=== PATIENT | male | born 1945 | race Caucasian/White ===

== ENCOUNTER → 2018-06-14 | Outpatient (CLI) | payer MEDICARE, OTHER ==
[~2018-06-14] MED LIST: AMLO5TAB10 PO; AZAT50TA PO; CYAN100031 PO; CYAN1TAB21 PO; ERGO50007 PO; FINA5TAB4 PO; FOLI1TAB16 PO; FURO40TA4 PO; INSU100I13 SQ; INSU100I17 SQ; LINA5TAB PO; LISI10TA2 PO; PANT40TA77 PO; POLY15DR20 OP; POTA99TA10 PO; PRED-220 PO; SULF-143 PO; TAMS0.4C97 PO; VIT1TABL57 PO
--- NOTE | 2018-06-14 17:06 | KCIC ---
COMPLETE ABDOMINAL ULTRASOUND Clinical History: Gross hematuria. Comparison: CT abdomen without contrast February 23, 2013. Technique: Sonographic examination of the abdomen was performed and multiple grayscale and color Doppler static images were obtained. Findings: Most of the liver is visualized and is increased in echogenicity. The liver measures 18.2 cm. Ultrasound is not sensitive for detecting solid liver lesions. Portal flow is hepatopetal. The common bile duct is normal in caliber, measuring 4 mm in diameter. The gallbladder wall is normal. Per report, sonographic Price sign is negative. There is no pericholecystic fluid. There are several hyper echogenicities along the wall of the gallbladder. There is no posterior acoustic shadowing. Considerations include tumefactive sludge or nonmobile gallstones. Pancreas is not well visualized due to overlying bowel gas. The right kidney is normal in echotexture and measures 11 cm. The left kidney is normal in echotexture and measures 10.7 cm. There is a 9 mm calculus in the left kidney. Corticomedullary differentiation is preserved. There is no hydronephrosis. The spleen is not enlarged, measuring 10.8 cm. There are calcified granulomas in the spleen. IVC is unremarkable. The distal abdominal aorta caliber is normal. Proximal and mid abdominal aorta are obscured due to overlying bowel gas. IMPRESSION: 1. Increased echogenicity of the liver. Common etiology is fatty infiltration. Liver size upper limits of normal. 2. Tiny nonmobile gallstones or tumefactive sludge. Gallbladder is otherwise normal. 3. Nonobstructing left renal calculus. Electronically signed by: Eloy Gerber MD (06/14/2018 5:02 PM) [id number]
== END | disposition home or self-care (01) ==
LOC: KCIC US 09:28
PROVIDERS: ATTEND Urology
DX: N20.0 Calculus of kidney (principal); K76.0 Fatty (change of) liver, not elsewhere classified
CPT/HCPCS: 76700

== ENCOUNTER → 2018-09-21 | Outpatient (CLI) | payer MEDICARE, OTHER ==
[~2018-09-21] MED LIST changes: +PANT40TA5 PO; -PANT40TA77 PO
[2018-09-21 09:13] LABS: ALBUMIN 2.7 g/dL (3.4-5.0); CALCIUM 9.1 mg/dL (8.5-10.1); CREATININE 2.5 mg/dL (0.7-1.3); GFR 25.6; PHOSPHORUS 4.2 mg/dL (2.6-4.7); POTASSIUM 4.2 mmol/L (3.5-5.1)
[2018-09-21 09:30] LABS: BILIRUBIN,URINE NEGATIVE (NEG); CLARITY,URINE CLEAR; COLOR,URINE YELLOW; NITRITE,URINE NEGATIVE (NEG); PROTEIN,URINE 100 mg/dL (NEG-TRACE); UROBILINOGEN,URINE 0.2 mg/dL (0.2 mg/dL)
[2018-09-21 09:42] LABS: BACTERIA,URINE MODERATE /HPF (0-FEW); WBC,URINE 20-40 /HPF (0-4)
[2018-09-24 17:12] LABS: C ANCA 1:40 titer (Neg:<1:20); P ANCA <1:20 titer (Neg:<1:20)
== END | disposition home or self-care (01) ==
LOC: LAB 07:41
PROVIDERS: ATTEND Internal Medicine Nephrology
DX: N18.2 Chronic kidney disease, stage 2 (mild) (principal); R80.9 Proteinuria, unspecified
CPT/HCPCS: 36415; 80069; 81001; 86021; 87086

== ENCOUNTER → 2018-09-27 | Outpatient (CLI) | payer MEDICARE, OTHER ==
[2018-09-27 08:14] LABS: ALBUMIN 2.7 g/dL (3.4-5.0); CALCIUM 8.9 mg/dL (8.5-10.1); CREATININE 2.3 mg/dL (0.7-1.3); GFR 28.1; PHOSPHORUS 2.9 mg/dL (2.6-4.7); POTASSIUM 3.8 mmol/L (3.5-5.1)
== END | disposition home or self-care (01) ==
LOC: LAB 07:26
PROVIDERS: ATTEND Internal Medicine Nephrology
DX: N18.2 Chronic kidney disease, stage 2 (mild) (principal); R80.9 Proteinuria, unspecified
CPT/HCPCS: 36415; 80069

== ENCOUNTER 2018-09-28 09:04 | Inpatient (IN) | payer OTHER, MEDICARE ==
[~2018-09-28] VITALS: Ht 167.6 cm; Wt 70.9 kg
[~2018-09-28 09:04] MED LIST changes: -FINA5TAB4 PO; -INSU100I13 SQ; -TAMS0.4C97 PO
[2018-09-28 10:20] LABS: BASO % 1 % (0-3); EOS # 0.1 x10^3/uL (0.0-0.7); EOS % 1 % (0-3); HEMATOCRIT 27.1 % (39.0-53.0); HEMOGLOBIN 8.9 g/dL (13.0-17.5); LYMPH # 0.6 x10^3/uL (1.0-4.8); LYMPH % 10 % (24-48); MEAN CORPUSCULAR HEMOGLOBIN 28 pg (25-35); MEAN CORPUSCULAR HGB CONC 33 g/dL (31-37); MEAN CORPUSCULAR VOLUME 86 fL (79-100); MONO # 0.4 x10^3/uL (0.0-1.1); MONO % 7 % (0-9); NEUT # 5.2 x10^3uL (1.8-7.7); NEUT % 82 % (31-73); PLATELET COUNT 307 x10^3/uL (140-400); RED BLOOD COUNT 3.16 x10^6/uL (4.30-5.70); RED CELL DISTRIBUTION WIDTH 16.3 % (11.5-14.5); WHITE BLOOD COUNT 6.4 x10^3/uL (4.0-11.0)
[2018-09-28 10:41] LABS: CREATININE 2.4 mg/dL (0.7-1.3); GFR 26.7; POTASSIUM 3.6 mmol/L (3.5-5.1)
[2018-09-28 11:35] LABS: ALBUMIN 2.8 g/dL (3.4-5.0); ALBUMIN/GLOBULIN RATIO 0.7 (1.0-1.7); MAGNESIUM 1.7 mg/dL (1.8-2.4); TOTAL BILIRUBIN 0.2 mg/dL (0.2-1.0); TOTAL PROTEIN 6.8 g/dL (6.4-8.2)
--- NOTE | 2018-09-28 11:35 | RAD ---
RENAL COMPLETE BILATERAL History: Renal failure Comparison: None. Findings: Multiple sonographic images of the kidneys and retroperitoneal structures are submitted. Right kidney measured 11.2 x 5.1 x 5.4 cm. Left kidney measures 11.4 x 4.3 x 5.8 cm. There is mild left hydronephrosis. There is no right hydronephrosis. There is a slightly lobulated contour of the bilateral kidneys. There is focus of hyperechogenicity of the inferior left kidney about 1.2 cm which may be a calculus as there is associated shadowing. There is prostatomegaly, estimated volume of 145 cm 3. Urinary bladder morphology is within normal limits, ureteral jets seen bilaterally in the urinary bladder lumen. Impression: 1. There is mild left hydronephrosis. There is likely inferior left renal calculus. Ureteral jets are seen bilaterally in the urinary bladder lumen. 2. There is prostatomegaly. Electronically signed by: Erik Cr MD (09/28/2018 11:07 AM) [id number]
[2018-09-28 12:07] LABS: COLOR,URINE YELLOW
[2018-09-28 12:08] LABS: BACTERIA,URINE MODERATE /HPF (0-FEW); BILIRUBIN,URINE NEGATIVE (NEG); CLARITY,URINE CLEAR; NITRITE,URINE NEGATIVE (NEG); PROTEIN,URINE 100 mg/dL (NEG-TRACE); RBC,URINE >40 /HPF (0-2); UROBILINOGEN,URINE 0.2 mg/dL (0.2 mg/dL); WBC,URINE >40 /HPF (0-4)
--- NOTE | 2018-09-28 12:49 | PHYS DOC ---
Past Medical History Past Medical History: Diabetes-Type II, GERD, Hypertension, Renal Failure, Other Additional Past Medical Histor: Wagners disease, dialysis, enlarged prostate Past Surgical History: No Surgical History Additional Information: chews tobacco daily Alcohol Use: Heavy Additional Information: reports drinking 4 cans of beer daily Drug Use: None Adult General Chief Complaint Chief Complaint: ABNORMAL LABS HPI HPI Patient is a 73 year old was sent here from his nephrology clinic due to abnormal kidney function. She denies any chest pain, no abdominal pain, no nausea vomiting. Patient denies any trouble breathing. Patient said he had been having swelling in his lower extremity for several weeks, he had been getting up in the middle night to urinate LEAST 4 TIMES PER NIGHT. HE FELT LIKE HE WAS NOT ABLE TO EMPTY HIS BLADDER COMPLETELY. HE HAS HISTORY OF PROSTRATE ENLARGEMENT. Review of Systems Review of Systems Constitutional: Denies fever or chills [] Eyes: Denies change in visual acuity, redness, or eye pain [] HENT: Denies nasal congestion or sore throat [] Respiratory: Denies cough or shortness of breath [] Cardiovascular: No additional information not addressed in HPI [] GI: Denies abdominal pain, nausea, vomiting, bloody stools or diarrhea [] : Denies dysuria or hematuria [] Musculoskeletal: Denies back pain or joint pain [] Integument: Denies rash or skin lesions [] Neurologic: Denies headache, focal weakness or sensory changes [] Endocrine: Denies polyuria or polydipsia [] All other systems were reviewed and found to be within normal limits, except as documented in this note. Current Medications Current Medications Current Medications Medications (Trade) Dose Ordered Sig/Maikel Start Time Stop Time Status Last Admin Dose Admin Sodium Chloride 1,000 ml @ 75 mls/hr [id number] 09/28/18 12:57 09/29/18 12:56 Allergies Allergies Allergies Coded Allergies Type Severity Reaction Last Updated Verified venom-honey bee Allergy Severe Anaphylaxis 06/14/13 Yes Physical Exam Physical Exam Constitutional: Well developed, well nourished, no acute distress, non-toxic appearance. [] HENT: Normocephalic, atraumatic, bilateral external ears normal, oropharynx moist, no oral exudates, nose normal. [] Eyes: PERRLA, EOMI, conjunctiva normal, no discharge. [] Neck: Normal range of motion, no tenderness, supple, no stridor. [] Cardiovascular:Heart rate regular rhythm, no murmur [] Lungs & Thorax: Bilateral breath sounds clear to auscultation [] Abdomen: Bowel sounds normal, soft, no tenderness, no masses, no pulsatile masses. [] Skin: Warm, dry, no erythema, no rash. [] Back: No tenderness, no CVA tenderness. [] Extremities: No tenderness, no cyanosis, no clubbing, ROM intact, TWO PLUS BILATERAL LEGS PITTING EDEMA. Neurologic: Alert and oriented X 3, normal motor function, normal sensory function, no focal deficits noted. [] Psychologic: Affect normal, judgement normal, mood normal. [] Current Patient Data Vital Signs Vital Signs Date Time Temp Pulse Resp B/P (MAP) Pulse Ox O2 Delivery O2 Flow Rate FiO2 09/28/18 12:52 58 167/74 (105) 100 Room Air 09/28/18 12:22 16 09/28/18 09:30 97.9 97.9 Lab Values Laboratory Tests Test 09/28/18 09:30 09/28/18 10:00 Urine Collection Type Unknown Urine Color Yellow Urine Clarity Clear Urine pH 6.0 Urine Specific [place] 1.010 Urine Protein 100 mg/dL (NEG-TRACE) Urine Glucose (UA) Negative mg/dL (NEG) Urine Ketones (Stick) Negative mg/dL (NEG) Urine Blood Large (NEG) Urine Nitrite Negative (NEG) Urine Bilirubin Negative (NEG) Urine Urobilinogen Dipstick 0.2 mg/dL (0.2 mg/dL) Urine Leukocyte Esterase Moderate (NEG) Urine RBC >40 /HPF (0-2) Urine WBC >40 /HPF (0-4) Urine Bacteria Moderate /HPF (0-FEW) White Blood Count 6.4 x10^3/uL (4.0-11.0) Red Blood Count 3.16 x10^6/uL (4.30-5.70) L Hemoglobin 8.9 g/dL (13.0-17.5) L Hematocrit 27.1 % (39.0-53.0) L Mean Corpuscular Volume 86 fL (79-100) Mean Corpuscular Hemoglobin 28 pg (25-35) Mean Corpuscular Hemoglobin Concent 33 g/dL (31-37) Red Cell Distribution Width 16.3 % (11.5-14.5) H Platelet Count 307 x10^3/uL (140-400) Neutrophils (%) (Auto) 82 % (31-73) H Lymphocytes (%) (Auto) 10 % (24-48) L Monocytes (%) (Auto) 7 % (0-9) Eosinophils (%) (Auto) 1 % (0-3) Basophils (%) (Auto) 1 % (0-3) Neutrophils # (Auto) 5.2 x10^3uL (1.8-7.7) Lymphocytes # (Auto) 0.6 x10^3/uL (1.0-4.8) L Monocytes # (Auto) 0.4 x10^3/uL (0.0-1.1) Eosinophils # (Auto) 0.1 x10^3/uL (0.0-0.7) Basophils # (Auto) 0.0 x10^3/uL (0.0-0.2) Sodium Level 141 mmol/L (136-145) Potassium Level 3.6 mmol/L (3.5-5.1) Chloride Level 104 mmol/L (98-107) Carbon Dioxide Level 27 mmol/L (21-32) Anion Gap 10 (6-14) Blood Urea Nitrogen 29 mg/dL (8-26) H Creatinine 2.4 mg/dL (0.7-1.3) H Estimated GFR (Cockcroft-Gault) 26.7 BUN/Creatinine Ratio 12 (6-20) Glucose Level 126 mg/dL (70-99) H Calcium Level 9.0 mg/dL (8.5-10.1) Magnesium Level 1.7 mg/dL (1.8-2.4) L Total Bilirubin 0.2 mg/dL (0.2-1.0) Aspartate Amino Transferase (AST) 17 U/L (15-37) Alanine Aminotransferase (ALT) 13 U/L (16-63) L Alkaline Phosphatase 92 U/L (46-116) Total Protein 6.8 g/dL (6.4-8.2) Albumin 2.8 g/dL (3.4-5.0) L Albumin/Globulin Ratio 0.7 (1.0-1.7) L Laboratory Tests 09/28/18 10:00 Laboratory Tests 09/28/18 10:00 EKG EKG [] Radiology/Procedures Radiology/Procedures [][facility] [address] [place] [address] IMAGING REPORT Signed PATIENT: ISATU MAZARIEGOS ACCOUNT: [id number] : 1945 LOCATION: ER AGE: 73 SEX: M EXAM STATUS: REG ER ORD. PHYSICIAN: JOSH GOMES DO REASON: renal failure, urinary retention PROCEDURE: RENAL COMPLETE BILATERAL RENAL COMPLETE BILATERAL History: Renal failure Comparison: None. Findings: Multiple sonographic images of the kidneys and retroperitoneal structures are submitted. Right kidney measured 11.2 x 5.1 x 5.4 cm. Left kidney measures 11.4 x 4.3 x 5.8 cm. There is mild left hydronephrosis. There is no right hydronephrosis. There is a slightly lobulated contour of the bilateral kidneys. There is focus of hyperechogenicity of the inferior left kidney about 1.2 cm which may be a calculus as there is associated shadowing. There is prostatomegaly, estimated volume of 145 cm 3. Urinary bladder morphology is within normal limits, ureteral jets seen bilaterally in the urinary bladder lumen. Impression: 1. There is mild left hydronephrosis. There is likely inferior left renal calculus. Ureteral jets are seen bilaterally in the urinary bladder lumen. 2. There is prostatomegaly. Electronically signed by: Celeste Longoria MD (09/28/2018 11:07 AM) [facility] DICTATED and SIGNED BY: CELESTE LONGORIA MD DATE: 09/28/18 1107 Course & Med Decision Making Course & Med Decision Making Pertinent Labs and Imaging studies reviewed. (See chart for details) [] Dragon Disclaimer Dragon Disclaimer This electronic medical record was generated, in whole or in part, using a voice recognition dictation system. Departure Departure Impression: Primary Impression: Acute renal failure Disposition: 09 ADMITTED INPATIENT Admitting Physician: Bart Poe Condition: STABLE Referrals: BART POE MD (PCP) JOSH GOMES DO Sep 28, 2018 12:49
[2018-09-28] MEDS ORDERED: IV NORMAL SALINE 1000ML BAG 1,000 ML IV SCH (12:57)
[2018-09-28] MEDS ORDERED: ONDANSETRON PF 4 MG/2 ML VIAL. IV PRN (13:00)
[2018-09-28 15:00] VITALS: BP 161/82
[2018-09-28] MEDS ORDERED: ACETAMINOPHEN 325 MG TABLET. PO PRN (18:15)
[2018-09-28] MEDS ORDERED: POLYVINYL ALCOHOL 1.4% OPHTH SOLUTION 15ML BOTTLE. OU PRN (18:15)
--- NOTE | 2018-09-28 18:20 | PDOC ---
Provider Note Provider Note Patient seen. History and Physical dictated. See dictation#[id number] BART MURPHY MD Sep 28, 2018 18:20
--- NOTE | 2018-09-28 18:46 | HP ---
ADMIT DATE: 09/28/2018 HISTORY OF PRESENT ILLNESS: This 73-year-old male went to Dr. Hernandez's office today for Nephrology evaluation and he was noted to have creatinine of 2.4. Previously, the patient's creatinine has been around 1. 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 Currently, he is getting azathioprine and for many years, his renal function has been quite stable. However, the patient has been complaining of nocturia four times at night and feels that he is not able to empty the bladder completely and last several weeks, he also has had swelling of the legs. Because of that, the patient was sent to the Emergency Room. In the Emergency Room, the patient's creatinine was 2.4. Urinalysis showed nitrite negative, but moderate leukocyte esterase, 40 rbc's, 40 wbc's and moderate bacteria. The patient does not have any dysuria, fever or chills. BUN is 29, creatinine 2.4, glucose 126, magnesium 1.7, albumin 2.8. Sodium 141, potassium 3.6. WBC count 6.4, hemoglobin 8.9. Renal sonogram showed mild left hydronephrosis and possible inferior left renal calculus. Because of the acute renal failure, the patient has been admitted for further evaluation and management. REVIEW OF SYSTEMS: At present time, the patient denies any hematuria, dysuria, cold, cough, congestion, chest pains, abdominal pain, nausea, vomiting, diarrhea, back pain, dysuria, fever, chills, heartburn, or any other issues. He does admit to swelling of the legs for the last several weeks. PAST MEDICAL HISTORY: The patient has a history of Rosa's granulomatosis and at one time required hemodialysis for end-stage renal disease, has degenerative joint disease involving multiple joints, anemia. 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 PAST SURGICAL HISTORY: The patient has had peritoneal dialysis access catheter as well as kidney biopsy. ALLERGIES: The patient has had bee venom protein. THE PATIENT IS ALLERGIC TO ALL BEES. FAMILY HISTORY: Father had coronary artery disease at age 50. It was a premature coronary artery disease. Mother had Alzheimer's disease. SOCIAL HISTORY: No history of smoking, alcoholism or drug abuse. He does have a history of drinking beer every day. He does not smoke, but chews tobacco. PHYSICAL EXAMINATION: GENERAL: The patient is an elderly male who is alert, oriented x 3 and not in any acute distress. VITAL SIGNS: Temperature 97.9, pulse 69 per minute, respirations 16 per minute, blood pressure initially was 166/81 mmHg. Currently, it is 170/73, pulse 59 per minute, respirations 17 per minute. The patient is alert, oriented and not in any acute distress. EYES: Pupils reacting to light. Conjunctivae pink. Sclerae muddy. HENT: Unremarkable. NECK: Supple. JVP normal. No thyromegaly. Trachea midline. LUNGS: Clear. CARDIOVASCULAR SYSTEM: S1, S2 regular. ABDOMEN: Soft, nontender, no guarding, no rigidity, no CVA or suprapubic tenderness. Bowel sounds present. EXTREMITIES: Trace to 1+ edema present. No calf tenderness. CENTRAL NERVOUS SYSTEM: Alert and oriented. No acute changes noted. LABORATORY FINDINGS: As noted earlier. IMPRESSION: 1. Acute renal failure. 2. Hypertension, not controlled. 3. Diabetes mellitus. 4. Rosa's granulomatosis, on azathioprine. 5. History of elevated prostate specific antigen and prostatic hypertrophy. 6. Possible left renal calculus. 7. The patient may have obstructive uropathy. PLAN: I will start him on IV fluids to see if we can help him in his renal function for the acute renal failure. We will consult the urologist for Urology evaluation and management and Dr. Hernandez for Nephrology evaluation and management. The patient has been kept n.p.o. from [facility] for kidney biopsy. For details, please review the orders. Condition and treatment discussed with the patient and his . Magnesium level is slightly low at 1.7, so I will start him on magnesium supplements. Recheck labs in a.m. For details, please review the orders and monitor blood pressure and blood sugars. BART MURPHY MD DR: GALEN/seth JOB#: [id number] / [id number]
[2018-09-28 19:00] VITALS: BP 144/59
[2018-09-28] MEDS: IV NORMAL SALINE 1000ML BAG 1,000 ML IV SCH (19:37)
[2018-09-28] MEDS ORDERED: TAMSULOSIN 0.4 MG CAP.ER.24H. PO SCH (21:00)
[2018-09-28] MEDS ORDERED: azaTHIOprine 50 MG TABLET PO SCH (21:00)
[2018-09-28] MEDS: MAGNESIUM OXIDE 400 MG TABLET PO SCH (21:41)
[2018-09-28 22:40] VITALS: BP 119/48
[2018-09-29] VITALS (13 sets, daily range): BP systolic 103–147; BP diastolic 51–81
[2018-09-29] MEDS: IV NORMAL SALINE 1000ML BAG 1,000 ML IV SCH ×3 (05:09→20:48)
[2018-09-29 06:19] LABS: BASO % 1 % (0-3); EOS # 0.1 x10^3/uL (0.0-0.7); EOS % 3 % (0-3); HEMATOCRIT 24.8 % (39.0-53.0); HEMOGLOBIN 8.2 g/dL (13.0-17.5); LYMPH # 0.6 x10^3/uL (1.0-4.8); LYMPH % 13 % (24-48); MEAN CORPUSCULAR HEMOGLOBIN 29 pg (25-35); MEAN CORPUSCULAR HGB CONC 33 g/dL (31-37); MEAN CORPUSCULAR VOLUME 86 fL (79-100); MONO # 0.4 x10^3/uL (0.0-1.1); MONO % 8 % (0-9); NEUT # 3.4 x10^3uL (1.8-7.7); NEUT % 76 % (31-73); PLATELET COUNT 262 x10^3/uL (140-400); RED BLOOD COUNT 2.89 x10^6/uL (4.30-5.70); RED CELL DISTRIBUTION WIDTH 16.5 % (11.5-14.5); WHITE BLOOD COUNT 4.5 x10^3/uL (4.0-11.0)
[2018-09-29 06:40] LABS: ALBUMIN 2.3 g/dL (3.4-5.0); ALBUMIN/GLOBULIN RATIO 0.6 (1.0-1.7); CALCIUM 8.4 mg/dL (8.5-10.1); CREATININE 2.2 mg/dL (0.7-1.3); GFR 29.6; MAGNESIUM 1.8 mg/dL (1.8-2.4); PHOSPHORUS 4.1 mg/dL (2.6-4.7); POTASSIUM 3.8 mmol/L (3.5-5.1); TOTAL BILIRUBIN 0.3 mg/dL (0.2-1.0)
[2018-09-29] MEDS ORDERED: PANTOPRAZOLE 40 MG TABLET.DR. PO SCH (07:00)
[2018-09-29] MEDS ORDERED: CYANOCOBALAMIN PO SCH (09:00)
[2018-09-29] MEDS: MAGNESIUM OXIDE 400 MG TABLET PO SCH ×2 (09:00→20:46)
[2018-09-29] MEDS ORDERED: [UNRECOGNIZED DRUG - OTHER] PO SCH (09:00)
[2018-09-29] MEDS ORDERED: LINAGLIPTIN 5 MG TABLET PO SCH (09:00)
[2018-09-29] MEDS ORDERED: FOLIC ACID 1 MG TABLET. PO SCH (09:00)
[2018-09-29] MEDS ORDERED: PYRIDOXINE PO SCH (09:00)
--- NOTE | 2018-09-29 09:02 | PDOC2 ---
LORENA REDDING APRN 09/29/18 0902: UROLOGY CONSULT Date of Consult Date of Consult DATE: 09/29/18 TIME: 09:00 Reason for Consult Reason for Consult: Incomplete emptying. Identification/Chief Complaint Chief Complaint Incomplete emptying, question whether he has had a prostate biopsy or not Source Source: Chart review, Patient History of Present Illness Reason for Visit: This very pleasant 73 year old male hospitalized for acute renal failure is well known to us. He is a patient of Dr. Minor's and was seen at [facility] clinic for elevated PSA for which he had a prostate biopsy on the 27 of July at our [facility] clinic. He did see Dr. Minor again in the office in July and was told that his biopsy results were negative, but the doctor wanted to see him again in six months. He is mostly feelign well today, but does admit to some LUTS, the most bothersome of which is nocturia of 3-4 times at night and some sensation of incomplete emptying, although this is not as bothersome as the nocturia. He denies dysuria or hematuria, flank or abd pain and would actually like to go home today if possible. He has been taking Finasteride daily and one Flomax daily as an outpatient. Dr. Duarte would like to perform a Renal biopsy on him and is wanting confirmation that prostate biopsy results were negative. Past Medical History Cardiovascular: HTN Pulmonary: No pertinent hx GI: Constipation, GERD Heme/Onc: Other Musculoskeletal: low back pain, Osteoarthritis Rheumatologic: Other Infectious disease: No pertinent hx Renal/: Other Endocrine: Diabetes Past Surgical History Past Surgical History: Other (Prostate biopsy) Family History Family History: Other Social History ALCOHOL: social Drugs: None Lives: with Family Current Medications Current Medications Current Medications Acetaminophen (Tylenol) 650 mg PRN Q6HRS PRN PO MILD PAIN / TEMP; Start 09/28/18 at 18:15 Artificial Tears (Artificial Tears) 1 drop PRN QID PRN OU DRY EYE; Start 09/28/18 at 18:15 Azathioprine (Imuran) 50 mg BID PO ; Start 09/28/18 at 21:00; Status UNV Azathioprine (Imuran) 50 mg DAILY PO ; Start 09/29/18 at 09:00 Cyanocobalamin (Vitamin B-12) 1,000 mcg DAILY PO ; Start 09/29/18 at 09:00 Finasteride (Proscar) 5 mg DAILY PO ; Start 09/29/18 at 09:00 Folic Acid (Folic Acid) 1 mg DAILY PO ; Start 09/29/18 at 09:00 Folic Acid (Folic Acid) 1 mg DAILY PO ; Start 09/29/18 at 09:00; Status UNV Linagliptin (Tradjenta) 5 mg DAILY PO ; Start 09/29/18 at 09:00; Status UNV Magnesium Oxide (Magnesium Oxide) 400 mg BID PO Last administered on 09/28/18at 21:41; Start 09/28/18 at 21:00 Nifedipine (Procardia Xl) 30 mg HS PO Last administered on 09/28/18at 21:41; Start 09/28/18 at 21:00 Non-Formulary Medication (Cyanocobalamin/ Fa/Pyridoxine (B Complex-Folic Acid Tablet)) 1 each DAILY PO ; Start 09/29/18 at 09:00; Status UNV Ondansetron HCl (Zofran) 4 mg PRN Q8HRS PRN IV NAUSEA/VOMITING; Start 09/28/18 at 13:00; Stop 09/29/18 at 12:59 Pantoprazole Sodium (Protonix) 40 mg DAILY07 PO ; Start 09/29/18 at 07:00; Status UNV Pantoprazole Sodium (Protonix) 40 mg DAILYAC PO ; Start 09/29/18 at 07:30 Sodium Chloride 1,000 ml @ 75 mls/hr [id number] IV ; Start 09/28/18 at 12:57; Stop 09/28/18 at 18:33; Status DC Sodium Chloride 1,000 ml @ 100 mls/hr Q10H IV Last administered on 09/29/18at 05:09; Start 09/28/18 at 18:30 Tamsulosin HCl (Flomax) 0.4 mg QHS PO Last administered on 09/28/18at 21:42; Start 09/28/18 at 21:00 Allergies Allergies: Coded Allergies: venom-honey bee (Verified Allergy, Severe, Anaphylaxis, 06/14/13) BEE STING ROS Review Of Systems: CONSTITUTIONAL: No fever or chills EYES: No recent changes SKIN: No rash or itching CARDIOVASCULAR: No chest pain, syncope, palpitations, or edema RESPIRATORY: No SOB or cough GASTROINTESTINAL: No nausea, vomiting or abdominal pain NEUROLOGICAL: No headaches or weakness ENDOCRINE: No cold or heat intolerance GENITOURINARY: + nocturia, incomplete emptying MUSCULOSKELETAL: No back pain or joint pain LYMPHATICS: No enlarged lymph nodes PSYCHIATRIC: No anxiety or depression Physical Exam Physical Exam: General: Pleasant, no acute distress, well groomed Eyes: conjunctiva anicteric, eyes full range of motion ENT: moist oral mucosa, normal dentition Neck: Trachea midline, no masses Respiratory: unlabored breathing, not using accessory muscles, : Bladder scan shows 280-290 PVR Abdomen: nontender, nondistended, no hepatosplenomegaly, no masses Back: Negative CVA pain on testing bilaterally Skin: no rashes or skin lesions on visualized skin Psych: normal mood, affect. Alert and oriented x 3. Vitals VITALS Vital Signs Date Time Temp Pulse Resp B/P (MAP) Pulse Ox O2 Delivery O2 Flow Rate FiO2 09/29/18 08:08 Room Air 09/29/18 07:00 98.0 55 16 103/54 (70) 100 98.0 Labs Labs Laboratory Tests Test 09/28/18 09:30 09/28/18 10:00 09/29/18 05:50 Urine Collection Type Unknown Urine Color Yellow Urine Clarity Clear Urine pH 6.0 Urine Specific [place] 1.010 Urine Protein 100 mg/dL (NEG-TRACE) Urine Glucose (UA) Negative mg/dL (NEG) Urine Ketones (Stick) Negative mg/dL (NEG) Urine Blood Large (NEG) Urine Nitrite Negative (NEG) Urine Bilirubin Negative (NEG) Urine Urobilinogen Dipstick 0.2 mg/dL (0.2 mg/dL) Urine Leukocyte Esterase Moderate (NEG) Urine RBC >40 /HPF (0-2) Urine WBC >40 /HPF (0-4) Urine Bacteria Moderate /HPF (0-FEW) White Blood Count 6.4 x10^3/uL (4.0-11.0) 4.5 x10^3/uL (4.0-11.0) Red Blood Count 3.16 x10^6/uL (4.30-5.70) 2.89 x10^6/uL (4.30-5.70) Hemoglobin 8.9 g/dL (13.0-17.5) 8.2 g/dL (13.0-17.5) Hematocrit 27.1 % (39.0-53.0) 24.8 % (39.0-53.0) Mean Corpuscular Volume 86 fL (79-100) 86 fL (79-100) Mean Corpuscular Hemoglobin 28 pg (25-35) 29 pg (25-35) Mean Corpuscular Hemoglobin Concent 33 g/dL (31-37) 33 g/dL (31-37) Red Cell Distribution Width 16.3 % (11.5-14.5) 16.5 % (11.5-14.5) Platelet Count 307 x10^3/uL (140-400) 262 x10^3/uL (140-400) Neutrophils (%) (Auto) 82 % (31-73) 76 % (31-73) Lymphocytes (%) (Auto) 10 % (24-48) 13 % (24-48) Monocytes (%) (Auto) 7 % (0-9) 8 % (0-9) Eosinophils (%) (Auto) 1 % (0-3) 3 % (0-3) Basophils (%) (Auto) 1 % (0-3) 1 % (0-3) Neutrophils # (Auto) 5.2 x10^3uL (1.8-7.7) 3.4 x10^3uL (1.8-7.7) Lymphocytes # (Auto) 0.6 x10^3/uL (1.0-4.8) 0.6 x10^3/uL (1.0-4.8) Monocytes # (Auto) 0.4 x10^3/uL (0.0-1.1) 0.4 x10^3/uL (0.0-1.1) Eosinophils # (Auto) 0.1 x10^3/uL (0.0-0.7) 0.1 x10^3/uL (0.0-0.7) Basophils # (Auto) 0.0 x10^3/uL (0.0-0.2) 0.0 x10^3/uL (0.0-0.2) Sodium Level 141 mmol/L (136-145) 141 mmol/L (136-145) Potassium Level 3.6 mmol/L (3.5-5.1) 3.8 mmol/L (3.5-5.1) Chloride Level 104 mmol/L (98-107) 106 mmol/L (98-107) Carbon Dioxide Level 27 mmol/L (21-32) 26 mmol/L (21-32) Anion Gap 10 (6-14) 9 (6-14) Blood Urea Nitrogen 29 mg/dL (8-26) 25 mg/dL (8-26) Creatinine 2.4 mg/dL (0.7-1.3) 2.2 mg/dL (0.7-1.3) Estimated GFR (Cockcroft-Gault) 26.7 29.6 BUN/Creatinine Ratio 12 (6-20) 11 (6-20) Glucose Level 126 mg/dL (70-99) 122 mg/dL (70-99) Calcium Level 9.0 mg/dL (8.5-10.1) 8.4 mg/dL (8.5-10.1) Magnesium Level 1.7 mg/dL (1.8-2.4) 1.8 mg/dL (1.8-2.4) Total Bilirubin 0.2 mg/dL (0.2-1.0) 0.3 mg/dL (0.2-1.0) Aspartate Amino Transf (AST/SGOT) 17 U/L (15-37) 17 U/L (15-37) Alanine Aminotransferase (ALT/SGPT) 13 U/L (16-63) 11 U/L (16-63) Alkaline Phosphatase 92 U/L (46-116) 77 U/L (46-116) Total Protein 6.8 g/dL (6.4-8.2) 6.0 g/dL (6.4-8.2) Albumin 2.8 g/dL (3.4-5.0) 2.3 g/dL (3.4-5.0) Albumin/Globulin Ratio 0.7 (1.0-1.7) 0.6 (1.0-1.7) Phosphorus Level 4.1 mg/dL (2.6-4.7) Laboratory Tests Test 09/28/18 09:30 09/28/18 10:00 09/29/18 05:50 Urine Collection Type Unknown Urine Color Yellow Urine Clarity Clear Urine pH 6.0 Urine Specific [place] 1.010 Urine Protein 100 mg/dL (NEG-TRACE) Urine Glucose (UA) Negative mg/dL (NEG) Urine Ketones (Stick) Negative mg/dL (NEG) Urine Blood Large (NEG) Urine Nitrite Negative (NEG) Urine Bilirubin Negative (NEG) Urine Urobilinogen Dipstick 0.2 mg/dL (0.2 mg/dL) Urine Leukocyte Esterase Moderate (NEG) Urine RBC >40 /HPF (0-2) Urine WBC >40 /HPF (0-4) Urine Bacteria Moderate /HPF (0-FEW) White Blood Count 6.4 x10^3/uL (4.0-11.0) 4.5 x10^3/uL (4.0-11.0) Red Blood Count 3.16 x10^6/uL (4.30-5.70) 2.89 x10^6/uL (4.30-5.70) Hemoglobin 8.9 g/dL (13.0-17.5) 8.2 g/dL (13.0-17.5) Hematocrit 27.1 % (39.0-53.0) 24.8 % (39.0-53.0) Mean Corpuscular Volume 86 fL (79-100) 86 fL (79-100) Mean Corpuscular Hemoglobin 28 pg (25-35) 29 pg (25-35) Mean Corpuscular Hemoglobin Concent 33 g/dL (31-37) 33 g/dL (31-37) Red Cell Distribution Width 16.3 % (11.5-14.5) 16.5 % (11.5-14.5) Platelet Count 307 x10^3/uL (140-400) 262 x10^3/uL (140-400) Neutrophils (%) (Auto) 82 % (31-73) 76 % (31-73) Lymphocytes (%) (Auto) 10 % (24-48) 13 % (24-48) Monocytes (%) (Auto) 7 % (0-9) 8 % (0-9) Eosinophils (%) (Auto) 1 % (0-3) 3 % (0-3) Basophils (%) (Auto) 1 % (0-3) 1 % (0-3) Neutrophils # (Auto) 5.2 x10^3uL (1.8-7.7) 3.4 x10^3uL (1.8-7.7) Lymphocytes # (Auto) 0.6 x10^3/uL (1.0-4.8) 0.6 x10^3/uL (1.0-4.8) Monocytes # (Auto) 0.4 x10^3/uL (0.0-1.1) 0.4 x10^3/uL (0.0-1.1) Eosinophils # (Auto) 0.1 x10^3/uL (0.0-0.7) 0.1 x10^3/uL (0.0-0.7) Basophils # (Auto) 0.0 x10^3/uL (0.0-0.2) 0.0 x10^3/uL (0.0-0.2) Sodium Level 141 mmol/L (136-145) 141 mmol/L (136-145) Potassium Level 3.6 mmol/L (3.5-5.1) 3.8 mmol/L (3.5-5.1) Chloride Level 104 mmol/L (98-107) 106 mmol/L (98-107) Carbon Dioxide Level 27 mmol/L (21-32) 26 mmol/L (21-32) Anion Gap 10 (6-14) 9 (6-14) Blood Urea Nitrogen 29 mg/dL (8-26) 25 mg/dL (8-26) Creatinine 2.4 mg/dL (0.7-1.3) 2.2 mg/dL (0.7-1.3) Estimated GFR (Cockcroft-Gault) 26.7 29.6 BUN/Creatinine Ratio 12 (6-20) 11 (6-20) Glucose Level 126 mg/dL (70-99) 122 mg/dL (70-99) Calcium Level 9.0 mg/dL (8.5-10.1) 8.4 mg/dL (8.5-10.1) Magnesium Level 1.7 mg/dL (1.8-2.4) 1.8 mg/dL (1.8-2.4) Total Bilirubin 0.2 mg/dL (0.2-1.0) 0.3 mg/dL (0.2-1.0) Aspartate Amino Transf (AST/SGOT) 17 U/L (15-37) 17 U/L (15-37) Alanine Aminotransferase (ALT/SGPT) 13 U/L (16-63) 11 U/L (16-63) Alkaline Phosphatase 92 U/L (46-116) 77 U/L (46-116) Total Protein 6.8 g/dL (6.4-8.2) 6.0 g/dL (6.4-8.2) Albumin 2.8 g/dL (3.4-5.0) 2.3 g/dL (3.4-5.0) Albumin/Globulin Ratio 0.7 (1.0-1.7) 0.6 (1.0-1.7) Phosphorus Level 4.1 mg/dL (2.6-4.7) Images Images 1. There is mild left hydronephrosis. There is likely inferior left renal calculus. Ureteral jets are seen bilaterally in the urinary bladder lumen. 2. There is prostatomegaly. Assessment/Plan Assessment/Plan Increase Flomax from one tab daily to one tab BID for PVR 280-290. Recommend he continue this schedule at home. Continue finasteride No need for serial bladder scans, however nursing staff may scan PRN patient complaint of retention. For PVR less than 350, encourage voiding and leave catheter out. For PVR greater than 350, please call Urology. Encouraged timed and double voiding. Follow up with Dr. Minor in one month for re-evaluation, will coordinate with personnel scheduler to get him an appointment. Renal is wanting to go ahead with a renal biopsy, ok in light of prostate biopsy results. Pathology and visit reports faxed to 6th floor and discussed above with attending RN via telephone. For hydronephrosis and suspected finding of left inferior stone: Pt is completely asymptomatic of stone related symptoms. However, will get a non urgent KUB for further evaluation. Dr. Minor to check on patient later today. MELISA MINOR MD 09/29/18 1702: UROLOGY CONSULT Assessment/Plan Assessment/Plan Agree w above. CT with 3-4mm in LMP and 10mm LLP, not obstructing. wILL monitor for now. LORENA REDDING APRN September 29, 2018 09:02 MELISA MINOR MD September 29, 2018 17:02
[2018-09-29] MEDS: TAMSULOSIN 0.4 MG CAP.ER.24H. PO SCH ×2 (09:15→20:46)
--- NOTE | 2018-09-29 09:43 | PDOC ---
IM PROGRESS NOTES- Subjective Subjective No complaints of abdominal pain, dyspnea or dysuria. Objective Vitals Vital Signs Date Time Temp Pulse Resp B/P (MAP) Pulse Ox O2 Delivery O2 Flow Rate FiO2 09/29/18 08:08 Room Air 09/29/18 07:00 98.0 55 16 103/54 (70) 100 98.0 Input & Output Intake and Output 09/29/18 07:00 Output Total 1350 ml Balance -1350 ml Output Urine Total 1350 ml Physical Exam Physical Exam General appearance - alert,well appearing, and in no distress and oriented to person, place, and time Mental Status - alert, oriented to person, place, and time, affect appropriate to mood Head - normal Chest - clear to auscultation, no wheezes, rales or rhonchi, symmetric air entry Heart - S1 and S2 normal Abdomen - soft, nontender, nondistended, no masses or organomegaly Neurological - alert and oriented Musculoskeletal - no muscular tenderness noted Extremities - no pedal edema Skin - warm and dry Labs Laboratory Tests Test 09/28/18 09:30 09/28/18 10:00 09/29/18 05:50 Urine Collection Type Unknown Urine Color Yellow Urine Clarity Clear Urine pH 6.0 Urine Specific [place] 1.010 Urine Protein 100 mg/dL (NEG-TRACE) Urine Glucose (UA) Negative mg/dL (NEG) Urine Ketones (Stick) Negative mg/dL (NEG) Urine Blood Large (NEG) Urine Nitrite Negative (NEG) Urine Bilirubin Negative (NEG) Urine Urobilinogen Dipstick 0.2 mg/dL (0.2 mg/dL) Urine Leukocyte Esterase Moderate (NEG) Urine RBC >40 /HPF (0-2) Urine WBC >40 /HPF (0-4) Urine Bacteria Moderate /HPF (0-FEW) White Blood Count 6.4 x10^3/uL (4.0-11.0) 4.5 x10^3/uL (4.0-11.0) Red Blood Count 3.16 x10^6/uL (4.30-5.70) 2.89 x10^6/uL (4.30-5.70) Hemoglobin 8.9 g/dL (13.0-17.5) 8.2 g/dL (13.0-17.5) Hematocrit 27.1 % (39.0-53.0) 24.8 % (39.0-53.0) Mean Corpuscular Volume 86 fL (79-100) 86 fL (79-100) Mean Corpuscular Hemoglobin 28 pg (25-35) 29 pg (25-35) Mean Corpuscular Hemoglobin Concent 33 g/dL (31-37) 33 g/dL (31-37) Red Cell Distribution Width 16.3 % (11.5-14.5) 16.5 % (11.5-14.5) Platelet Count 307 x10^3/uL (140-400) 262 x10^3/uL (140-400) Neutrophils (%) (Auto) 82 % (31-73) 76 % (31-73) Lymphocytes (%) (Auto) 10 % (24-48) 13 % (24-48) Monocytes (%) (Auto) 7 % (0-9) 8 % (0-9) Eosinophils (%) (Auto) 1 % (0-3) 3 % (0-3) Basophils (%) (Auto) 1 % (0-3) 1 % (0-3) Neutrophils # (Auto) 5.2 x10^3uL (1.8-7.7) 3.4 x10^3uL (1.8-7.7) Lymphocytes # (Auto) 0.6 x10^3/uL (1.0-4.8) 0.6 x10^3/uL (1.0-4.8) Monocytes # (Auto) 0.4 x10^3/uL (0.0-1.1) 0.4 x10^3/uL (0.0-1.1) Eosinophils # (Auto) 0.1 x10^3/uL (0.0-0.7) 0.1 x10^3/uL (0.0-0.7) Basophils # (Auto) 0.0 x10^3/uL (0.0-0.2) 0.0 x10^3/uL (0.0-0.2) Sodium Level 141 mmol/L (136-145) 141 mmol/L (136-145) Potassium Level 3.6 mmol/L (3.5-5.1) 3.8 mmol/L (3.5-5.1) Chloride Level 104 mmol/L (98-107) 106 mmol/L (98-107) Carbon Dioxide Level 27 mmol/L (21-32) 26 mmol/L (21-32) Anion Gap 10 (6-14) 9 (6-14) Blood Urea Nitrogen 29 mg/dL (8-26) 25 mg/dL (8-26) Creatinine 2.4 mg/dL (0.7-1.3) 2.2 mg/dL (0.7-1.3) Estimated GFR (Cockcroft-Gault) 26.7 29.6 BUN/Creatinine Ratio 12 (6-20) 11 (6-20) Glucose Level 126 mg/dL (70-99) 122 mg/dL (70-99) Calcium Level 9.0 mg/dL (8.5-10.1) 8.4 mg/dL (8.5-10.1) Magnesium Level 1.7 mg/dL (1.8-2.4) 1.8 mg/dL (1.8-2.4) Total Bilirubin 0.2 mg/dL (0.2-1.0) 0.3 mg/dL (0.2-1.0) Aspartate Amino Transf (AST/SGOT) 17 U/L (15-37) 17 U/L (15-37) Alanine Aminotransferase (ALT/SGPT) 13 U/L (16-63) 11 U/L (16-63) Alkaline Phosphatase 92 U/L (46-116) 77 U/L (46-116) Total Protein 6.8 g/dL (6.4-8.2) 6.0 g/dL (6.4-8.2) Albumin 2.8 g/dL (3.4-5.0) 2.3 g/dL (3.4-5.0) Albumin/Globulin Ratio 0.7 (1.0-1.7) 0.6 (1.0-1.7) Phosphorus Level 4.1 mg/dL (2.6-4.7) Laboratory Tests Test 09/28/18 10:00 09/29/18 05:50 White Blood Count 6.4 x10^3/uL (4.0-11.0) 4.5 x10^3/uL (4.0-11.0) Red Blood Count 3.16 x10^6/uL (4.30-5.70) 2.89 x10^6/uL (4.30-5.70) Hemoglobin 8.9 g/dL (13.0-17.5) 8.2 g/dL (13.0-17.5) Hematocrit 27.1 % (39.0-53.0) 24.8 % (39.0-53.0) Mean Corpuscular Volume 86 fL (79-100) 86 fL (79-100) Mean Corpuscular Hemoglobin 28 pg (25-35) 29 pg (25-35) Mean Corpuscular Hemoglobin Concent 33 g/dL (31-37) 33 g/dL (31-37) Red Cell Distribution Width 16.3 % (11.5-14.5) 16.5 % (11.5-14.5) Platelet Count 307 x10^3/uL (140-400) 262 x10^3/uL (140-400) Neutrophils (%) (Auto) 82 % (31-73) 76 % (31-73) Lymphocytes (%) (Auto) 10 % (24-48) 13 % (24-48) Monocytes (%) (Auto) 7 % (0-9) 8 % (0-9) Eosinophils (%) (Auto) 1 % (0-3) 3 % (0-3) Basophils (%) (Auto) 1 % (0-3) 1 % (0-3) Neutrophils # (Auto) 5.2 x10^3uL (1.8-7.7) 3.4 x10^3uL (1.8-7.7) Lymphocytes # (Auto) 0.6 x10^3/uL (1.0-4.8) 0.6 x10^3/uL (1.0-4.8) Monocytes # (Auto) 0.4 x10^3/uL (0.0-1.1) 0.4 x10^3/uL (0.0-1.1) Eosinophils # (Auto) 0.1 x10^3/uL (0.0-0.7) 0.1 x10^3/uL (0.0-0.7) Basophils # (Auto) 0.0 x10^3/uL (0.0-0.2) 0.0 x10^3/uL (0.0-0.2) Sodium Level 141 mmol/L (136-145) 141 mmol/L (136-145) Potassium Level 3.6 mmol/L (3.5-5.1) 3.8 mmol/L (3.5-5.1) Chloride Level 104 mmol/L (98-107) 106 mmol/L (98-107) Carbon Dioxide Level 27 mmol/L (21-32) 26 mmol/L (21-32) Anion Gap 10 (6-14) 9 (6-14) Blood Urea Nitrogen 29 mg/dL (8-26) 25 mg/dL (8-26) Creatinine 2.4 mg/dL (0.7-1.3) 2.2 mg/dL (0.7-1.3) Estimated GFR (Cockcroft-Gault) 26.7 29.6 BUN/Creatinine Ratio 12 (6-20) 11 (6-20) Glucose Level 126 mg/dL (70-99) 122 mg/dL (70-99) Calcium Level 9.0 mg/dL (8.5-10.1) 8.4 mg/dL (8.5-10.1) Magnesium Level 1.7 mg/dL (1.8-2.4) 1.8 mg/dL (1.8-2.4) Total Bilirubin 0.2 mg/dL (0.2-1.0) 0.3 mg/dL (0.2-1.0) Aspartate Amino Transf (AST/SGOT) 17 U/L (15-37) 17 U/L (15-37) Alanine Aminotransferase (ALT/SGPT) 13 U/L (16-63) 11 U/L (16-63) Alkaline Phosphatase 92 U/L (46-116) 77 U/L (46-116) Total Protein 6.8 g/dL (6.4-8.2) 6.0 g/dL (6.4-8.2) Albumin 2.8 g/dL (3.4-5.0) 2.3 g/dL (3.4-5.0) Albumin/Globulin Ratio 0.7 (1.0-1.7) 0.6 (1.0-1.7) Phosphorus Level 4.1 mg/dL (2.6-4.7) Meds Current Medications Acetaminophen (Tylenol) 650 mg PRN Q6HRS PRN PO MILD PAIN / TEMP; Start 09/28/18 at 18:15 Artificial Tears (Artificial Tears) 1 drop PRN QID PRN OU DRY EYE; Start 09/28/18 at 18:15 Azathioprine (Imuran) 50 mg BID PO ; Start 09/28/18 at 21:00; Status UNV Azathioprine (Imuran) 50 mg DAILY PO ; Start 09/29/18 at 09:00 Cyanocobalamin (Vitamin B-12) 1,000 mcg DAILY PO ; Start 09/29/18 at 09:00 Finasteride (Proscar) 5 mg DAILY PO ; Start 09/29/18 at 09:00 Folic Acid (Folic Acid) 1 mg DAILY PO ; Start 09/29/18 at 09:00 Folic Acid (Folic Acid) 1 mg DAILY PO ; Start 09/29/18 at 09:00; Status UNV Linagliptin (Tradjenta) 5 mg DAILY PO ; Start 09/29/18 at 09:00; Status UNV Magnesium Oxide (Magnesium Oxide) 400 mg BID PO Last administered on 09/28/18at 21:41; Start 09/28/18 at 21:00 Nifedipine (Procardia Xl) 30 mg HS PO Last administered on 09/28/18at 21:41; Start 09/28/18 at 21:00 Non-Formulary Medication (Cyanocobalamin/ Fa/Pyridoxine (B Complex-Folic Acid Tablet)) 1 each DAILY PO ; Start 09/29/18 at 09:00; Status UNV Ondansetron HCl (Zofran) 4 mg PRN Q8HRS PRN IV NAUSEA/VOMITING; Start 09/28/18 at 13:00; Stop 09/29/18 at 12:59 Pantoprazole Sodium (Protonix) 40 mg DAILY07 PO ; Start 09/29/18 at 07:00; Status UNV Pantoprazole Sodium (Protonix) 40 mg DAILYAC PO ; Start 09/29/18 at 07:30 Sodium Chloride 1,000 ml @ 75 mls/hr [id number] IV ; Start 09/28/18 at 12:57; Stop 09/28/18 at 18:33; Status DC Sodium Chloride 1,000 ml @ 100 mls/hr Q10H IV Last administered on 09/29/18at 05:09; Start 09/28/18 at 18:30 Tamsulosin HCl (Flomax) 0.4 mg BID PO ; Start 09/29/18 at 09:15 Tamsulosin HCl (Flomax) 0.4 mg QHS PO Last administered on 09/28/18at 21:42; Start 09/28/18 at 21:00; Stop 09/29/18 at 09:13; Status DC Assessment Assessment 1. Acute renal failure. 2. Hypertension, not controlled. 3. Diabetes mellitus. 4. Rosa's granulomatosis, on azathioprine. 5. History of elevated prostate specific antigen and prostatic hypertrophy. 6. Possible left renal calculus. 7. The patient may have obstructive uropathy. PLAN: I will start him on IV fluids to see if we can help him in his renal function for the acute renal failure. We will consult the urologist for Urology evaluation and management and Dr. Hernandez for Nephrology evaluation and management. The patient has been kept n.p.o. from [facility] for kidney biopsy. For details, please review the orders. Condition and treatment discussed with the patient and his . Magnesium level is slightly low at 1.7, so I will start him on magnesium supplements. Recheck labs in a.m. For details, please review the orders and monitor blood pressure and blood sugars. Discussed with Dr. Duarte. Plan is to give him IV steroids for 3 days and do a renal biopsy. Discussed with Ness PADILLA from urology and she is to check if the patient had prostate biopsy previously. Increase Flomax to 0.4 mg twice a day and monitor urine output. Acute renal failure- creatinine has decreased to 2.2. Recheck labs in a.m. Continue IV fluids. Patient wanted to go home today but he will not be possible due to the steroid t reatment per Dr. Duarte. Plan Plan For more details regarding further plans, please refer to the orders. BART MURPHY MD September 29, 2018 09:43
--- NOTE | 2018-09-29 09:53 | PDOC2 ---
CONSULT Date of Consult Date of Consult DATE: 09/29/18 TIME: 09:29 Reason for Consult Reason for Consult: AYLA , Identification/Chief Complaint Chief Complaint Currently no complaints Source Source: Chart review, Patient History of Present Illness Reason for Visit: Pt is a 73-year-old CM follows with Dr. Hernandez for dx of Rosa and CKD , he was noted to have increase in creatinine to 2.4. Previously, baseline Creat has been around 1. 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 He was also found to have proteinuria of 2.5 gm (increased from 1110 mg) . Dr. Hernandez had ordered ANCA titres which apparently were elevated as well . Pt admitted for renal Bx and IV Methylprednisolone Currently, he is getting azathioprine , Prednisone 10 mg PO qd for many years, his renal function has been quite stable. He follows with Rheum as well He has been complaining of nocturia four times at night and feels that he is not able to empty the bladder completely and last several weeks, he also has had swelling of the legs. He reports that he has been following with Urology and last appt was in july 2018- PSA elevated and he underwent Prostate Bx which was reported as atypical- no malignanacy and he is scheduled to follow up with Dr. Minor in 6 months Urology has laso been consulted. Bed side bladder scan done by Urology SCRAPE GATHERER showed PVR of approx 250 ml . Renal US- reports Mild Hydronephrosis and suspicion of Lt renal claculus, Pt d enies any hx of Nephrolithiasis in the past Past Medical History Cardiovascular: HTN Pulmonary: No pertinent hx GI: Constipation, GERD Heme/Onc: Other Musculoskeletal: low back pain, Osteoarthritis Rheumatologic: Other Infectious disease: No pertinent hx Renal/: Other Endocrine: Diabetes Past Surgical History Past Surgical History: Hysterectomy Family History Family History: Other Social History ALCOHOL: social Drugs: None Lives: with Family Current Medications Current Medications Current Medications Ondansetron HCl (Zofran) 4 mg PRN Q8HRS PRN IV NAUSEA/VOMITING; Start 09/28/18 at 13:00; Stop 09/29/18 at 12:59 Sodium Chloride 1,000 ml @ 75 mls/hr [id number] IV ; Start 09/28/18 at 12:57; Stop 09/28/18 at 18:33; Status DC Sodium Chloride 1,000 ml @ 100 mls/hr Q10H IV Last administered on 09/29/18at 05:09; Start 09/28/18 at 18:30 Azathioprine (Imuran) 50 mg DAILY PO ; Start 09/29/18 at 09:00 Nifedipine (Procardia Xl) 30 mg HS PO Last administered on 09/28/18at 21:41; Start 09/28/18 at 21:00 Pantoprazole Sodium (Protonix) 40 mg DAILYAC PO ; Start 09/29/18 at 07:30 Finasteride (Proscar) 5 mg DAILY PO ; Start 09/29/18 at 09:00 Tamsulosin HCl (Flomax) 0.4 mg QHS PO Last administered on 09/28/18at 21:42; Start 09/28/18 at 21:00 Cyanocobalamin (Vitamin B-12) 1,000 mcg DAILY PO ; Start 09/29/18 at 09:00 Folic Acid (Folic Acid) 1 mg DAILY PO ; Start 09/29/18 at 09:00 Azathioprine (Imuran) 50 mg BID PO ; Start 09/28/18 at 21:00; Status UNV Folic Acid (Folic Acid) 1 mg DAILY PO ; Start 09/29/18 at 09:00; Status UNV Linagliptin (Tradjenta) 5 mg DAILY PO ; Start 09/29/18 at 09:00; Status UNV Pantoprazole Sodium (Protonix) 40 mg DAILY07 PO ; Start 09/29/18 at 07:00; Status UNV Artificial Tears (Artificial Tears) 1 drop PRN QID PRN OU DRY EYE; Start at 18:15 Non-Formulary Medication (Cyanocobalamin/ Fa/Pyridoxine (B Complex-Folic Acid Tablet)) 1 each DAILY PO ; Start 09/29/18 at 09:00; Status UNV Magnesium Oxide (Magnesium Oxide) 400 mg BID PO Last administered on 09/28/18at 21:41; Start 09/28/18 at 21:00 Acetaminophen (Tylenol) 650 mg PRN Q6HRS PRN PO MILD PAIN / TEMP; Start 09/28/18 at 18:15 Active Scripts Active Reported Potassium 99 Mg Tablet 99 Mg PO DAILY Tradjenta (Linagliptin) 5 Mg Tablet 5 Mg PO DAILY Prednisone (Prednisone) 10 Mg Tablet 10 Mg PO DAILY Novolog Flexpen (Insulin Aspart) 100 Unit/1 Ml Insuln.pen 100 Unit SQ QIDACHS Nephro-Jeff Rx Tablet (Vit B Cmplx 3/Fa/Vit C/Biotin) 1 Each Tablet 1 Each PO DAILY Lisinopril 10 Mg Tablet 10 Mg PO DAILY Furosemide 40 Mg Tablet 40 Mg PO DAILY Folic Acid 1 Mg Tablet 1 Mg PO Ergocalciferol (Vitamin D2) 50,000 Unit Capsule 50,000 Unit PO WEEKLY B-12 (Cyanocobalamin (Vitamin B-12)) 1,000 Mcg Tablet.er 1,000 Mcg PO B Complex-Folic Acid Tablet (Cyanocobalamin/Fa/Pyridoxine) 1 Each Tablet 1 Each PO DAILY Azathioprine 50 Mg Tablet 50 Mg PO BID Sulfamethoxazole-Tmp Ds Tablet (Sulfamethoxazole/Trimethoprim) 1 Each Tablet 1 Each PO 3X/WEEK Polyvinyl Alcohol 15 Ml Drops 15 Ml OP QIDPRN Pantoprazole Sodium 40 Mg Tablet.dr 40 Mg PO DAILY07 Allergies Allergies: Coded Allergies: venom-honey bee (Verified Allergy, Severe, Anaphylaxis, 06/14/13) BEE STING ROS Review of System As per HPI Physical Exam Physical Exam GENERAL: not in any acute distress. HENT: OM moist NECK: Supple LUNGS: CTA ant , No use of accessory Muscle CV : S1, S2 regular. ABDOMEN: Soft, nontender, EXTREMITIES: Trace edema BULB ASSEMBLER- Alert and oriented, grossly normal SKIN - No rash - No SP or CV tenderness, No Benavides Bladder scan PVR + Vital Signs Vital Signs Date Time Temp Pulse Resp B/P (MAP) Pulse Ox O2 Delivery O2 Flow Rate FiO2 09/29/18 08:08 Room Air 09/29/18 07:00 98.0 55 16 103/54 (70) 100 98.0 Assessment & Plan AYLA - Follows with for Rosa Has been stable with Normal Creat and minimal proteinuria On Imuran and Prednisone po for many years Recent labs showed elevated Creat to 2.7 and 24 Proteinuria of 2.5 gms Anca positive Renal Function better , cannot rule out Obstructive Uropathy Patient was advised admission and Renal Bx followed by IV loading steroids by Dr. Hernandez Bx scheduled for today, will give 1 st dose of steroid today post Bx Microscopic Hematuria - Could be recurrence of Rosa vs ? Renal Calculus Lt Elevated PSA as well, s/p Prostate Bx qapprox 2-3 weeks back as per patient No malignancy as per patient Urology following as well Hydronephrosis Mild Lt PVR 200-250 ml ? Lt Renal calculus Urology following Rosa's granulomatosis, on azathioprine and prednisone PO Follows with Rheumatology s well Discussed A/P with patient, PCP, Urology and RN Labs Labs Laboratory Tests Test 09/28/18 09:30 09/28/18 10:00 09/29/18 05:50 Urine Collection Type Unknown Urine Color Yellow Urine Clarity Clear Urine pH 6.0 Urine Specific [place] 1.010 Urine Protein 100 mg/dL (NEG-TRACE) Urine Glucose (UA) Negative mg/dL (NEG) Urine Ketones (Stick) Negative mg/dL (NEG) Urine Blood Large (NEG) Urine Nitrite Negative (NEG) Urine Bilirubin Negative (NEG) Urine Urobilinogen Dipstick 0.2 mg/dL (0.2 mg/dL) Urine Leukocyte Esterase Moderate (NEG) Urine RBC >40 /HPF (0-2) Urine WBC >40 /HPF (0-4) Urine Bacteria Moderate /HPF (0-FEW) White Blood Count 6.4 x10^3/uL (4.0-11.0) 4.5 x10^3/uL (4.0-11.0) Red Blood Count 3.16 x10^6/uL (4.30-5.70) 2.89 x10^6/uL (4.30-5.70) Hemoglobin 8.9 g/dL (13.0-17.5) 8.2 g/dL (13.0-17.5) Hematocrit 27.1 % (39.0-53.0) 24.8 % (39.0-53.0) Mean Corpuscular Volume 86 fL (79-100) 86 fL (79-100) Mean Corpuscular Hemoglobin 28 pg (25-35) 29 pg (25-35) Mean Corpuscular Hemoglobin Concent 33 g/dL (31-37) 33 g/dL (31-37) Red Cell Distribution Width 16.3 % (11.5-14.5) 16.5 % (11.5-14.5) Platelet Count 307 x10^3/uL (140-400) 262 x10^3/uL (140-400) Neutrophils (%) (Auto) 82 % (31-73) 76 % (31-73) Lymphocytes (%) (Auto) 10 % (24-48) 13 % (24-48) Monocytes (%) (Auto) 7 % (0-9) 8 % (0-9) Eosinophils (%) (Auto) 1 % (0-3) 3 % (0-3) Basophils (%) (Auto) 1 % (0-3) 1 % (0-3) Neutrophils # (Auto) 5.2 x10^3uL (1.8-7.7) 3.4 x10^3uL (1.8-7.7) Lymphocytes # (Auto) 0.6 x10^3/uL (1.0-4.8) 0.6 x10^3/uL (1.0-4.8) Monocytes # (Auto) 0.4 x10^3/uL (0.0-1.1) 0.4 x10^3/uL (0.0-1.1) Eosinophils # (Auto) 0.1 x10^3/uL (0.0-0.7) 0.1 x10^3/uL (0.0-0.7) Basophils # (Auto) 0.0 x10^3/uL (0.0-0.2) 0.0 x10^3/uL (0.0-0.2) Sodium Level 141 mmol/L (136-145) 141 mmol/L (136-145) Potassium Level 3.6 mmol/L (3.5-5.1) 3.8 mmol/L (3.5-5.1) Chloride Level 104 mmol/L (98-107) 106 mmol/L (98-107) Carbon Dioxide Level 27 mmol/L (21-32) 26 mmol/L (21-32) Anion Gap 10 (6-14) 9 (6-14) Blood Urea Nitrogen 29 mg/dL (8-26) 25 mg/dL (8-26) Creatinine 2.4 mg/dL (0.7-1.3) 2.2 mg/dL (0.7-1.3) Estimated GFR (Cockcroft-Gault) 26.7 29.6 BUN/Creatinine Ratio 12 (6-20) 11 (6-20) Glucose Level 126 mg/dL (70-99) 122 mg/dL (70-99) Calcium Level 9.0 mg/dL (8.5-10.1) 8.4 mg/dL (8.5-10.1) Magnesium Level 1.7 mg/dL (1.8-2.4) 1.8 mg/dL (1.8-2.4) Total Bilirubin 0.2 mg/dL (0.2-1.0) 0.3 mg/dL (0.2-1.0) Aspartate Amino Transf (AST/SGOT) 17 U/L (15-37) 17 U/L (15-37) Alanine Aminotransferase (ALT/SGPT) 13 U/L (16-63) 11 U/L (16-63) Alkaline Phosphatase 92 U/L (46-116) 77 U/L (46-116) Total Protein 6.8 g/dL (6.4-8.2) 6.0 g/dL (6.4-8.2) Albumin 2.8 g/dL (3.4-5.0) 2.3 g/dL (3.4-5.0) Albumin/Globulin Ratio 0.7 (1.0-1.7) 0.6 (1.0-1.7) Phosphorus Level 4.1 mg/dL (2.6-4.7) Laboratory Tests Test 09/28/18 09:30 09/28/18 10:00 09/29/18 05:50 Urine Collection Type Unknown Urine Color Yellow Urine Clarity Clear Urine pH 6.0 Urine Specific [place] 1.010 Urine Protein 100 mg/dL (NEG-TRACE) Urine Glucose (UA) Negative mg/dL (NEG) Urine Ketones (Stick) Negative mg/dL (NEG) Urine Blood Large (NEG) Urine Nitrite Negative (NEG) Urine Bilirubin Negative (NEG) Urine Urobilinogen Dipstick 0.2 mg/dL (0.2 mg/dL) Urine Leukocyte Esterase Moderate (NEG) Urine RBC >40 /HPF (0-2) Urine WBC >40 /HPF (0-4) Urine Bacteria Moderate /HPF (0-FEW) White Blood Count 6.4 x10^3/uL (4.0-11.0) 4.5 x10^3/uL (4.0-11.0) Red Blood Count 3.16 x10^6/uL (4.30-5.70) 2.89 x10^6/uL (4.30-5.70) Hemoglobin 8.9 g/dL (13.0-17.5) 8.2 g/dL (13.0-17.5) Hematocrit 27.1 % (39.0-53.0) 24.8 % (39.0-53.0) Mean Corpuscular Volume 86 fL (79-100) 86 fL (79-100) Mean Corpuscular Hemoglobin 28 pg (25-35) 29 pg (25-35) Mean Corpuscular Hemoglobin Concent 33 g/dL (31-37) 33 g/dL (31-37) Red Cell Distribution Width 16.3 % (11.5-14.5) 16.5 % (11.5-14.5) Platelet Count 307 x10^3/uL (140-400) 262 x10^3/uL (140-400) Neutrophils (%) (Auto) 82 % (31-73) 76 % (31-73) Lymphocytes (%) (Auto) 10 % (24-48) 13 % (24-48) Monocytes (%) (Auto) 7 % (0-9) 8 % (0-9) Eosinophils (%) (Auto) 1 % (0-3) 3 % (0-3) Basophils (%) (Auto) 1 % (0-3) 1 % (0-3) Neutrophils # (Auto) 5.2 x10^3uL (1.8-7.7) 3.4 x10^3uL (1.8-7.7) Lymphocytes # (Auto) 0.6 x10^3/uL (1.0-4.8) 0.6 x10^3/uL (1.0-4.8) Monocytes # (Auto) 0.4 x10^3/uL (0.0-1.1) 0.4 x10^3/uL (0.0-1.1) Eosinophils # (Auto) 0.1 x10^3/uL (0.0-0.7) 0.1 x10^3/uL (0.0-0.7) Basophils # (Auto) 0.0 x10^3/uL (0.0-0.2) 0.0 x10^3/uL (0.0-0.2) Sodium Level 141 mmol/L (136-145) 141 mmol/L (136-145) Potassium Level 3.6 mmol/L (3.5-5.1) 3.8 mmol/L (3.5-5.1) Chloride Level 104 mmol/L (98-107) 106 mmol/L (98-107) Carbon Dioxide Level 27 mmol/L (21-32) 26 mmol/L (21-32) Anion Gap 10 (6-14) 9 (6-14) Blood Urea Nitrogen 29 mg/dL (8-26) 25 mg/dL (8-26) Creatinine 2.4 mg/dL (0.7-1.3) 2.2 mg/dL (0.7-1.3) Estimated GFR (Cockcroft-Gault) 26.7 29.6 BUN/Creatinine Ratio 12 (6-20) 11 (6-20) Glucose Level 126 mg/dL (70-99) 122 mg/dL (70-99) Calcium Level 9.0 mg/dL (8.5-10.1) 8.4 mg/dL (8.5-10.1) Magnesium Level 1.7 mg/dL (1.8-2.4) 1.8 mg/dL (1.8-2.4) Total Bilirubin 0.2 mg/dL (0.2-1.0) 0.3 mg/dL (0.2-1.0) Aspartate Amino Transf (AST/SGOT) 17 U/L (15-37) 17 U/L (15-37) Alanine Aminotransferase (ALT/SGPT) 13 U/L (16-63) 11 U/L (16-63) Alkaline Phosphatase 92 U/L (46-116) 77 U/L (46-116) Total Protein 6.8 g/dL (6.4-8.2) 6.0 g/dL (6.4-8.2) Albumin 2.8 g/dL (3.4-5.0) 2.3 g/dL (3.4-5.0) Albumin/Globulin Ratio 0.7 (1.0-1.7) 0.6 (1.0-1.7) Phosphorus Level 4.1 mg/dL (2.6-4.7) Review All relevant outside records, renal labs, imaging studies, telemetry/EKG's were reviewed. Images Images Renal US- Multiple sonographic images of the kidneys and retroperitoneal structures are submitted. Right kidney measured 11.2 x 5.1 x 5.4 cm. Left kidney measures 11.4 x 4.3 x 5.8 cm. There is mild left hydronephrosis. There is no right hydronephrosis. There is a slightly lobulated contour of the bilateral kidneys. There is focus of hyperechogenicity of the inferior left kidney about 1.2 cm which may be a calculus as there is associated shadowing. There is prostatomegaly, estimated volume of 145 cm 3. Urinary bladder morphology is within normal limits, ureteral jets seen bilaterally in the urinary bladder lumen. Impression: 1. There is mild left hydronephrosis. There is likely inferior left renal calculus. Ureteral jets are seen bilaterally in the urinary bladder lumen. 2. There is prostatomegaly. JACOBO CARDOZA MD September 29, 2018 09:53
[2018-09-29 11:12] LABS: PROTHROMBIN TIME PATIENT 14.1 SEC (11.7-14.0)
--- NOTE | 2018-09-29 13:31 | RAD ---
Examination: Single frontal view of the abdomen HISTORY: History of renal stones COMPARISON: 06/14/2013 Findings/ impression: The bowel gas pattern appears unremarkable. Feces and gas noted in the colon. No obvious calcific density projecting in the bilateral kidneys however evaluation is limited due to stool within the bowel. There is a calcific density projecting in the right pelvis could be pelvic phlebolith. Consider noncontrast CT renal stone study for further evaluation. Electronically signed by: Jeremy Nj MD (09/29/2018 1:28 PM) [id number]
[2018-09-29] MEDS ORDERED: LIDOCAINE WITH 8.4% SOD BICARB 3 ML DISP.SYRIN. ONE (13:46)
[2018-09-29] MEDS ORDERED: fentaNYL PF VIAL 100 MCG/2 ML VIAL ONE (13:57)
[2018-09-29] MEDS ORDERED: MIDAZOLAM HCL/PF 2 MG/2 ML VIAL. ONE (13:57)
[2018-09-29] MEDS ORDERED: GELATIN SPONGE SIZE 12-7MM SPONGE. ONE (14:22)
[2018-09-29] MEDS ORDERED: GELATIN SPONGE SIZE 12-7MM SPONGE. TP ONE (14:45)
[2018-09-29] MEDS ORDERED: fentaNYL PF VIAL 100 MCG/2 ML VIAL IV ONE (14:45)
[2018-09-29] MEDS ORDERED: LIDOCAINE WITH 8.4% SOD BICARB 3 ML DISP.SYRIN. IJ ONE (14:45)
[2018-09-29] MEDS ORDERED: MIDAZOLAM HCL/PF 2 MG/2 ML VIAL. IV ONE (14:45)
--- NOTE | 2018-09-29 15:15 | PDOC ---
MODERATE SEDATION ASSESSMENT RISKS/ALTERNATIVES Risks/Alternatives Risks and alternatives of this type of sedation and procedure discussed with: RISK/ALTERNATIVES: Patient H & P ON CHART H & P H & P on chart and reviewed for co-morbid conditions and appropriate labs. H&P ON CHART: Yes STATUS PREG STATUS ASSESSED: Yes MEDS/ALLERGIES REVIEWED Meds/Allergies Reviewed Medications and Allergies including time and route of recently administered narcotics and sedatives. MEDS/ALLERGIES REVIEWED: Yes ASA RATING ASA RATING: II AIRWAY ASSESSMENT Airway Assessment Airway patency, oral function limitations, presence of caps, crowns, dentures, partials, and ability to extend neck assessed. AIRWAY ASSESSMENT: Yes MALLAMPATI SCORE MALLAMPATI SCORE: II PRE-SEDATION ASSESSMENT PRE-SEDATION ASSESSMENT: Yes BRENDEN ERICKSON MD September 29, 2018 15:15
--- NOTE | 2018-09-29 15:31 | RAD ---
CT-guided percutaneous renal biopsy, right-sided 09/29/2018 Indication: History of Rosa's disease with acute renal injury. Discussion: The risks and benefits of the procedure were discussed the patient. Informed consent was obtained. A timeout procedure was performed. CT imaging was obtained demonstrating no significant hydronephrosis. Left nephrolithiasis noted. The posterior flanks were prepped and draped using sterile barrier technique. A right-sided approach was chosen. 1% lidocaine was administered for local anesthesia. Under intermittent CT guidance a 17-gauge needle was advanced into the inferior, posterior lateral renal cortex. 3 18-gauge core biopsy samples were obtained. Gelfoam embolization of the biopsy tract was performed guiding needle as it was removed. Post biopsy CT imaging was performed demonstrating Gelfoam embolization tract and minimal hemorrhage. Sterile dressings were applied. The patient tolerated the procedure well. The procedure was performed under conscious sedation including continuous cardiopulmonary monitoring via dedicated sedation nurse. [id number] sedation time: 30 minutes Impression: CT-guided renal biopsy PQRS Compliance Statement: One or more of the following individualized dose reduction techniques were utilized for this examination: 1. Automated exposure control 2. Adjustment of the mA and/or kV according to patient size 3. Use of iterative reconstruction technique
--- NOTE | 2018-09-29 15:38 | NUR ---
SW following pt for anticipated dc needs. Chart reviewed and DW RN. Pt lives at home with family. RN reported pt is independent with ADL's. No dc needs noted at this time.
[2018-09-29] MEDS: METHYLPREDNISOLONE SOD SUCC IV SCH (15:47)
[2018-09-29] MEDS: NORMAL SALINE IV SCH (15:47)
[2018-09-29] MEDS: azaTHIOprine 50 MG TABLET PO SCH (15:47)
[2018-09-29] MEDS: FINASTERIDE 5 MG TABLET. PO SCH (15:47)
[2018-09-29] MEDS: FOLIC ACID 1 MG TABLET. PO SCH (15:48)
[2018-09-29] MEDS: PANTOPRAZOLE 40 MG TABLET.DR. PO SCH (15:48)
[2018-09-29] MEDS: CYANOCOBALAMIN (VITAMIN B-12) 1,000 MCG TABLET. PO SCH (15:48)
[2018-09-30 03:00] VITALS: BP 126/64
[2018-09-30 03:19] LABS: BASO % 0 % (0-3); EOS % 0 % (0-3); HEMATOCRIT 25.4 % (39.0-53.0); HEMOGLOBIN 8.4 g/dL (13.0-17.5); LYMPH # 0.1 x10^3/uL (1.0-4.8); LYMPH % 3 % (24-48); MEAN CORPUSCULAR HEMOGLOBIN 28 pg (25-35); MEAN CORPUSCULAR HGB CONC 33 g/dL (31-37); MEAN CORPUSCULAR VOLUME 86 fL (79-100); MONO % 0 % (0-9); NEUT # 4.5 x10^3uL (1.8-7.7); NEUT % 97 % (31-73); PLATELET COUNT 265 x10^3/uL (140-400); RED BLOOD COUNT 2.96 x10^6/uL (4.30-5.70); RED CELL DISTRIBUTION WIDTH 16.7 % (11.5-14.5); WHITE BLOOD COUNT 4.6 x10^3/uL (4.0-11.0)
[2018-09-30 03:38] LABS: CALCIUM 8.6 mg/dL (8.5-10.1); CREATININE 2.4 mg/dL (0.7-1.3); GFR 26.7
[2018-09-30] MEDS: IV NORMAL SALINE 1000ML BAG 1,000 ML IV SCH (06:08)
[2018-09-30 07:00] VITALS: BP 136/67
[2018-09-30 07:03] LABS: % LYMPHS 1 % (24-48); % MONOS 1 % (0-10); % SEGS 98 % (35-66); PLT ESTIMATE ADEQUATE (ADEQUATE)
[2018-09-30] MEDS: PANTOPRAZOLE 40 MG TABLET.DR. PO SCH (08:37)
[2018-09-30] MEDS: azaTHIOprine 50 MG TABLET PO SCH (08:37)
[2018-09-30] MEDS: FOLIC ACID 1 MG TABLET. PO SCH (08:38)
[2018-09-30] MEDS: CYANOCOBALAMIN (VITAMIN B-12) 1,000 MCG TABLET. PO SCH (08:38)
[2018-09-30] MEDS: MAGNESIUM OXIDE 400 MG TABLET PO SCH ×2 (08:38→20:41)
[2018-09-30] MEDS: TAMSULOSIN 0.4 MG CAP.ER.24H. PO SCH ×2 (08:38→20:41)
[2018-09-30] MEDS: FINASTERIDE 5 MG TABLET. PO SCH (08:38)
--- NOTE | 2018-09-30 09:16 | PDOC ---
LORENA REDDING OFFICE COMMUNICATION PROFESSOR 09/30/18 0916: SUBJECTIVE Subjective Pt doing well this am. He has no pain, no dysuria or dizziness. They did the bx yesterday and he woudl like to go home. OBJECTIVE Objective Physical Exam: General appearance: Alert and Oriented Head: Normocephalic, without obvious abnormality Eyes: conjunctivae/corneas clear. PERRL, EOM's intact. Fundi benign Back: no flank pain. There is a dressing over the right lower back that is CDI from kidney biopsy done yesterday. Lungs: Regular respirations, non labored breathing Abdomen: soft, non-tender. Vital Signs Vital Signs Date Time Temp Pulse Resp B/P (MAP) Pulse Ox O2 Delivery O2 Flow Rate FiO2 09/30/18 08:52 Room Air 09/30/18 07:00 98.1 57 18 136/67 (90) 100 Room Air 98.1 09/30/18 03:00 98.4 55 16 126/64 (84) 95 Room Air 98.4 09/29/18 23:00 98.3 54 16 119/56 (77) 100 Room Air 98.3 09/29/18 20:46 60 129/62 09/29/18 20:00 Room Air 09/29/18 19:00 98.0 60 16 129/62 (84) 98 Room Air 98.0 09/29/18 15:00 16 100 Nasal Cannula 2.0 09/29/18 14:55 55 13 100 Nasal Cannula 2.0 09/29/18 14:48 59 18 100 Nasal Cannula 2.0 09/29/18 14:43 58 18 100 Nasal Cannula 2.0 09/29/18 14:38 58 15 100 Nasal Cannula 2.0 09/29/18 14:33 61 15 99 Nasal Cannula 2.0 09/29/18 14:28 61 18 99 Nasal Cannula 2.0 09/29/18 14:23 61 18 99 Nasal Cannula 2.0 09/29/18 14:18 67 16 99 Nasal Cannula 2.0 09/29/18 11:00 98.0 51 16 122/65 (84) 100 Room Air 98.0 I & O Intake and Output 09/30/18 06:59 Intake Total 540 ml Balance 540 ml Intake Oral 540 ml # Voids 3 PHYSICAL EXAM Physical Exam Physical Exam: General appearance: Alert and Oriented Head: Normocephalic, without obvious abnormality Eyes: conjunctivae/corneas clear. PERRL, EOM's intact. Fundi benign Back: no flank pain. There is a dressing over the right lower back that is CDI from kidney biopsy done yesterday. Lungs: Regular respirations, non labored breathing Abdomen: soft, non-tender. ASSESSMENT/PLAN Assessment/Plan Patient has a follow up appointment on 10/27/18 on 1:[address] Minor at [facility] location. Appointment card given to patient Continue BID Flomax and daily finasteride while in house. Recommend he continue twice daily Flomax on discharge also. Discussed that he has stones, but they are not obstructing. Reviewed symptoms of kidney stone obstruction and when to inform physician. He verbalized understanding. All questions answered. Ok to discharge from a urology perspective. Will sign off at this time, but please call with questions or changes in patient condition. COMMENT Lab Laboratory Tests Test 09/29/18 10:30 09/30/18 03:00 Prothrombin Time 14.1 SEC (11.7-14.0) Prothromb Time International Ratio 1.1 (0.8-1.1) Activated Partial Thromboplast Time 33 SEC (24-38) White Blood Count 4.6 x10^3/uL (4.0-11.0) Red Blood Count 2.96 x10^6/uL (4.30-5.70) Hemoglobin 8.4 g/dL (13.0-17.5) Hematocrit 25.4 % (39.0-53.0) Mean Corpuscular Volume 86 fL (79-100) Mean Corpuscular Hemoglobin 28 pg (25-35) Mean Corpuscular Hemoglobin Concent 33 g/dL (31-37) Red Cell Distribution Width 16.7 % (11.5-14.5) Platelet Count 265 x10^3/uL (140-400) Neutrophils (%) (Auto) 97 % (31-73) Lymphocytes (%) (Auto) 3 % (24-48) Monocytes (%) (Auto) 0 % (0-9) Eosinophils (%) (Auto) 0 % (0-3) Basophils (%) (Auto) 0 % (0-3) Neutrophils # (Auto) 4.5 x10^3uL (1.8-7.7) Lymphocytes # (Auto) 0.1 x10^3/uL (1.0-4.8) Monocytes # (Auto) 0.0 x10^3/uL (0.0-1.1) Eosinophils # (Auto) 0.0 x10^3/uL (0.0-0.7) Basophils # (Auto) 0.0 x10^3/uL (0.0-0.2) Segmented Neutrophils % 98 % (35-66) Lymphocytes % 1 % (24-48) Monocytes % 1 % (0-10) Platelet Estimate Adequate (ADEQUATE) Sodium Level 139 mmol/L (136-145) Potassium Level 4.0 mmol/L (3.5-5.1) Chloride Level 107 mmol/L (98-107) Carbon Dioxide Level 25 mmol/L (21-32) Anion Gap 7 (6-14) Blood Urea Nitrogen 27 mg/dL (8-26) Creatinine 2.4 mg/dL (0.7-1.3) Estimated GFR (Cockcroft-Gault) 26.7 Glucose Level 251 mg/dL (70-99) Calcium Level 8.6 mg/dL (8.5-10.1) MELISA MINOR MD 10/08/18 0941: ASSESSMENT/PLAN Assessment/Plan agree w above. LORENA REDDING APRN September 30, 2018 09:16 MELISA MINOR MD October 08, 2018 09:41
--- NOTE | 2018-09-30 09:54 | PDOC ---
IM PROGRESS NOTES- Subjective Subjective No complaints of abdominal pain, dyspnea or dysuria. He wants to go home. Objective Vitals Vital Signs Date Time Temp Pulse Resp B/P (MAP) Pulse Ox O2 Delivery O2 Flow Rate FiO2 09/30/18 08:52 Room Air 09/30/18 07:00 98.1 57 18 136/67 (90) 100 98.1 09/29/18 15:00 2.0 Input & Output Intake and Output 09/30/18 06:59 Intake Total 540 ml Balance 540 ml Intake Oral 540 ml # Voids 3 Physical Exam Physical Exam General appearance - alert,well appearing, and in no distress and oriented to p erson, place, and time Mental Status - alert, oriented to person, place, and time, affect appropriate to mood Head - normal Chest - clear to auscultation, no wheezes, rales or rhonchi, symmetric air entry Heart - S1 and S2 normal Abdomen - soft, nontender, nondistended, no masses or organomegaly Neurological - alert and oriented Musculoskeletal - no muscular tenderness noted Extremities - no pedal edema Skin - warm and dry Labs Laboratory Tests Test 09/28/18 10:00 09/29/18 05:50 09/29/18 10:30 09/30/18 03:00 White Blood Count 6.4 x10^3/uL (4.0-11.0) 4.5 x10^3/uL (4.0-11.0) 4.6 x10^3/uL (4.0-11.0) Red Blood Count 3.16 x10^6/uL (4.30-5.70) 2.89 x10^6/uL (4.30-5.70) 2.96 x10^6/uL (4.30-5.70) Hemoglobin 8.9 g/dL (13.0-17.5) 8.2 g/dL (13.0-17.5) 8.4 g/dL (13.0-17.5) Hematocrit 27.1 % (39.0-53.0) 24.8 % (39.0-53.0) 25.4 % (39.0-53.0) Mean Corpuscular Volume 86 fL (79-100) 86 fL (79-100) 86 fL (79-100) Mean Corpuscular Hemoglobin 28 pg (25-35) 29 pg (25-35) 28 pg (25-35) Mean Corpuscular Hemoglobin Concent 33 g/dL (31-37) 33 g/dL (31-37) 33 g/dL (31-37) Red Cell Distribution Width 16.3 % (11.5-14.5) 16.5 % (11.5-14.5) 16.7 % (11.5-14.5) Platelet Count 307 x10^3/uL (140-400) 262 x10^3/uL (140-400) 265 x10^3/uL (140-400) Neutrophils (%) (Auto) 82 % (31-73) 76 % (31-73) 97 % (31-73) Lymphocytes (%) (Auto) 10 % (24-48) 13 % (24-48) 3 % (24-48) Monocytes (%) (Auto) 7 % (0-9) 8 % (0-9) 0 % (0-9) Eosinophils (%) (Auto) 1 % (0-3) 3 % (0-3) 0 % (0-3) Basophils (%) (Auto) 1 % (0-3) 1 % (0-3) 0 % (0-3) Neutrophils # (Auto) 5.2 x10^3uL (1.8-7.7) 3.4 x10^3uL (1.8-7.7) 4.5 x10^3uL (1.8-7.7) Lymphocytes # (Auto) 0.6 x10^3/uL (1.0-4.8) 0.6 x10^3/uL (1.0-4.8) 0.1 x10^3/uL (1.0-4.8) Monocytes # (Auto) 0.4 x10^3/uL (0.0-1.1) 0.4 x10^3/uL (0.0-1.1) 0.0 x10^3/uL (0.0-1.1) Eosinophils # (Auto) 0.1 x10^3/uL (0.0-0.7) 0.1 x10^3/uL (0.0-0.7) 0.0 x10^3/uL (0.0-0.7) Basophils # (Auto) 0.0 x10^3/uL (0.0-0.2) 0.0 x10^3/uL (0.0-0.2) 0.0 x10^3/uL (0.0-0.2) Sodium Level 141 mmol/L (136-145) 141 mmol/L (136-145) 139 mmol/L (136-145) Potassium Level 3.6 mmol/L (3.5-5.1) 3.8 mmol/L (3.5-5.1) 4.0 mmol/L (3.5-5.1) Chloride Level 104 mmol/L (98-107) 106 mmol/L (98-107) 107 mmol/L (98-107) Carbon Dioxide Level 27 mmol/L (21-32) 26 mmol/L (21-32) 25 mmol/L (21-32) Anion Gap 10 (6-14) 9 (6-14) 7 (6-14) Blood Urea Nitrogen 29 mg/dL (8-26) 25 mg/dL (8-26) 27 mg/dL (8-26) Creatinine 2.4 mg/dL (0.7-1.3) 2.2 mg/dL (0.7-1.3) 2.4 mg/dL (0.7-1.3) Estimated GFR (Cockcroft-Gault) 26.7 29.6 26.7 BUN/Creatinine Ratio 12 (6-20) 11 (6-20) Glucose Level 126 mg/dL (70-99) 122 mg/dL (70-99) 251 mg/dL (70-99) Calcium Level 9.0 mg/dL (8.5-10.1) 8.4 mg/dL (8.5-10.1) 8.6 mg/dL (8.5-10.1) Magnesium Level 1.7 mg/dL (1.8-2.4) 1.8 mg/dL (1.8-2.4) Total Bilirubin 0.2 mg/dL (0.2-1.0) 0.3 mg/dL (0.2-1.0) Aspartate Amino Transf (AST/SGOT) 17 U/L (15-37) 17 U/L (15-37) Alanine Aminotransferase (ALT/SGPT) 13 U/L (16-63) 11 U/L (16-63) Alkaline Phosphatase 92 U/L (46-116) 77 U/L (46-116) Total Protein 6.8 g/dL (6.4-8.2) 6.0 g/dL (6.4-8.2) Albumin 2.8 g/dL (3.4-5.0) 2.3 g/dL (3.4-5.0) Albumin/Globulin Ratio 0.7 (1.0-1.7) 0.6 (1.0-1.7) Phosphorus Level 4.1 mg/dL (2.6-4.7) Prostate Specific Antigen 11.33 ng/mL (0.00-4.00) Prothrombin Time 14.1 SEC (11.7-14.0) Prothromb Time International Ratio 1.1 (0.8-1.1) Activated Partial Thromboplast Time 33 SEC (24-38) Segmented Neutrophils % 98 % (35-66) Lymphocytes % 1 % (24-48) Monocytes % 1 % (0-10) Platelet Estimate Adequate (ADEQUATE) Laboratory Tests Test 09/29/18 10:30 09/30/18 03:00 Prothrombin Time 14.1 SEC (11.7-14.0) Prothromb Time International Ratio 1.1 (0.8-1.1) Activated Partial Thromboplast Time 33 SEC (24-38) White Blood Count 4.6 x10^3/uL (4.0-11.0) Red Blood Count 2.96 x10^6/uL (4.30-5.70) Hemoglobin 8.4 g/dL (13.0-17.5) Hematocrit 25.4 % (39.0-53.0) Mean Corpuscular Volume 86 fL (79-100) Mean Corpuscular Hemoglobin 28 pg (25-35) Mean Corpuscular Hemoglobin Concent 33 g/dL (31-37) Red Cell Distribution Width 16.7 % (11.5-14.5) Platelet Count 265 x10^3/uL (140-400) Neutrophils (%) (Auto) 97 % (31-73) Lymphocytes (%) (Auto) 3 % (24-48) Monocytes (%) (Auto) 0 % (0-9) Eosinophils (%) (Auto) 0 % (0-3) Basophils (%) (Auto) 0 % (0-3) Neutrophils # (Auto) 4.5 x10^3uL (1.8-7.7) Lymphocytes # (Auto) 0.1 x10^3/uL (1.0-4.8) Monocytes # (Auto) 0.0 x10^3/uL (0.0-1.1) Eosinophils # (Auto) 0.0 x10^3/uL (0.0-0.7) Basophils # (Auto) 0.0 x10^3/uL (0.0-0.2) Segmented Neutrophils % 98 % (35-66) Lymphocytes % 1 % (24-48) Monocytes % 1 % (0-10) Platelet Estimate Adequate (ADEQUATE) Sodium Level 139 mmol/L (136-145) Potassium Level 4.0 mmol/L (3.5-5.1) Chloride Level 107 mmol/L (98-107) Carbon Dioxide Level 25 mmol/L (21-32) Anion Gap 7 (6-14) Blood Urea Nitrogen 27 mg/dL (8-26) Creatinine 2.4 mg/dL (0.7-1.3) Estimated GFR (Cockcroft-Gault) 26.7 Glucose Level 251 mg/dL (70-99) Calcium Level 8.6 mg/dL (8.5-10.1) Meds Current Medications Fentanyl Citrate (Fentanyl 2ml Vial) 100 mcg 1X ONCE IV Last administered on 09/29/18at 15:00; Start 09/29/18 at 14:45; Stop 09/29/18 at 14:46; Status DC Fentanyl Citrate (Fentanyl 2ml Vial) 100 mcg STK-MED ONCE .ROUTE ; Start 09/29/18 at 13:57; Stop 09/29/18 at 13:58; Status DC Gelatin (Gelfoam Size 12-7mm) 1 each 1X ONCE TP Last administered on 09/29/18at 14:45; Start 09/29/18 at 14:45; Stop 09/29/18 at 14:46; Status DC Gelatin (Gelfoam Size 12-7mm) 1 each STK-MED ONCE .ROUTE ; Start 09/29/18 at 14:22; Stop 09/29/18 at 14:23; Status DC Insulin Human Lispro (HumaLOG) 0-8 UNITS TIDAC SQ ; Start 09/30/18 at 11:30 Lidocaine/Sodium Bicarbonate (Buffered Lidocaine 1%) 3 ml 1X ONCE IJ Last administered on 09/29/18at 15:00; Start 09/29/18 at 14:45; Stop 09/29/18 at 14:46; Status DC Lidocaine/Sodium Bicarbonate (Buffered Lidocaine 1%) 3 ml STK-MED ONCE .ROUTE ; Start 09/29/18 at 13:46; Stop 09/29/18 at 13:47; Status DC Methylprednisolone Sodium Succinate 1000 mg/Sodium Chloride 108 ml @ 108 mls/hr Q24H IV Last administered on 09/29/18at 15:47; Start 09/29/18 at 15:00; Stop 10/01/18 at 15:59 Midazolam HCl (Versed) 2 mg 1X ONCE IV Last administered on 09/29/18at 15:00; Start 09/29/18 at 14:45; Stop 09/29/18 at 14:46; Status DC Midazolam HCl (Versed) 2 mg STK-MED ONCE .ROUTE ; Start 09/29/18 at 13:57; Stop 09/29/18 at 13:58; Status DC Assessment Assessment 1. Acute renal failure. 2. Hypertension, not controlled. 3. Diabetes mellitus. 4. Rosa's granulomatosis, on azathioprine. 5. History of elevated prostate specific antigen and prostatic hypertrophy. 6. Possible left renal calculus. 7. The patient may have obstructive uropathy. PLAN: I will start him on IV fluids to see if we can help him in his renal function for the acute renal failure. We will consult the urologist for Urology evaluation and management and Dr. Hernandez for Nephrology evaluation and management. The patient has been kept n.p.o. from [facility] for kidney biopsy. For details, please review the orders. Condition and treatment discussed with the patient and his . Magnesium level is slightly low at 1.7, so I will start him on magnesium supplements. Recheck labs in a.m. For details, please review the orders and monitor blood pressure and blood sugars. Discussed with Dr. Duarte. Plan is to give him IV steroids for 3 days and do a renal biopsy. Acute renal failure- creatinine has decreased to 2.2. Recheck labs in a.m. drinking fluids well. Okay to DC IV fluids. Patient wanted to go home today but it will not be possible due to the steroid treatment per Dr. Duarte. Plan is to discharge tomorrow. Benign prostatic hypertrophy- possibly with some obstruction. Increased Flomax to 0.4 mg twice a day and continue Proscar. Elevated blood sugar due to steroids.- Start sliding scale insulin. Plan Plan For more details regarding further plans, please refer to the orders. BART MURPHY MD September 30, 2018 09:54
--- NOTE | 2018-09-30 10:44 | PDOC ---
SUBJECTIVE ROS States feeling good, want to go home OBJECTIVE Vital Signs Vital Signs Date Time Temp Pulse Resp B/P (MAP) Pulse Ox O2 Delivery O2 Flow Rate FiO2 09/30/18 08:52 Room Air 09/30/18 07:00 98.1 57 18 136/67 (90) 100 98.1 09/29/18 15:00 2.0 I & 0 Intake and Output 09/30/18 06:59 Intake Total 540 ml Balance 540 ml Intake Oral 540 ml # Voids 3 PHYSICAL EXAM Physical Exam GENERAL: not in any acute distress. HENT: OM moist NECK: Supple LUNGS: CTA ant , No use of accessory Muscle CV : S1, S2 regular. ABDOMEN: Soft, nontender, EXTREMITIES: Trace edema EAP CONSULTANT- Alert and oriented, grossly normal SKIN - No rash - No SP or CV tenderness, No Benavides Bladder scan PVR + DIAGNOSIS/ASSESSMENT Assessment & Plan AYLA - Follows with for Rosa Has been stable with Normal Creat and minimal proteinuria On Imuran and Prednisone po for many years Recent labs showed elevated Creat to 2.7 and 24 Proteinuria of 2.5 gms Anca positive S/P renal Bx 09/29, await report Meanwhile started on Methylprednisone loading dose for 3 days will switch to PO Prednisone 60 mg QD on 4th day, follow up closely with Dr. lópez and [employer] Continue Imuran for now Microscopic Hematuria - Could be recurrence of Rosa vs ? Renal Calculus Lt Elevated PSA as well, s/p Prostate Bx qapprox 2-3 weeks back as per patient No malignancy Hydronephrosis Mild Lt PVR 200-250 ml Lt Renal calculus on US, CT done, report pending Urology following Rosa's granulomatosis, on azathioprine and prednisone PO Follows with Rheumatology s well Discussed A/P with patient and RN COMMENT/RELEVANT DATA Meds Current Medications Medications (Trade) Dose Ordered Sig/Maikel Start Time Stop Time Status Last Admin Dose Admin Acetaminophen (Tylenol) 650 mg PRN Q6HRS PRN 09/28/18 18:15 Artificial Tears (Artificial Tears) 1 drop PRN QID PRN 09/28/18 18:15 Azathioprine (Imuran) 50 mg BID 09/28/18 21:00 UNV Cyanocobalamin (Vitamin B-12) 1,000 mcg DAILY 09/29/18 09:00 09/30/18 08:38 1,000 MCG Fentanyl Citrate (Fentanyl 2ml Vial) 100 mcg 1X ONCE 09/29/18 14:45 09/29/18 14:46 DC 09/29/18 15:00 100 MCG Finasteride (Proscar) 5 mg DAILY 09/29/18 09:00 09/30/18 08:38 5 MG Folic Acid (Folic Acid) 1 mg DAILY 09/29/18 09:00 UNV Gelatin (Gelfoam Size 12-7mm) 1 each 1X ONCE 09/29/18 14:45 09/29/18 14:46 DC 09/29/18 14:45 1 EACH Insulin Human Lispro (HumaLOG) 0-8 UNITS TIDAC 09/30/18 11:30 Lidocaine/Sodium Bicarbonate (Buffered Lidocaine 1%) 3 ml 1X ONCE 09/29/18 14:45 09/29/18 14:46 DC 09/29/18 15:00 3 ML Linagliptin (Tradjenta) 5 mg DAILY 09/29/18 09:00 UNV Magnesium Oxide (Magnesium Oxide) 400 mg BID 09/28/18 21:00 09/30/18 08:38 400 MG Methylprednisolone Sodium Succinate 1000 mg/Sodium Chloride 108 ml @ 108 mls/hr Q24H 09/29/18 15:00 10/01/18 15:59 09/29/18 15:47 108 MLS/HR Midazolam HCl (Versed) 2 mg 1X ONCE 09/29/18 14:45 09/29/18 14:46 DC 09/29/18 15:00 2 MG Nifedipine (Procardia Xl) 30 mg HS 09/28/18 21:00 09/29/18 20:46 30 MG Non-Formulary Medication (Cyanocobalamin/ Fa/Pyridoxine (B Complex-Folic Acid Tablet)) 1 each DAILY 09/29/18 09:00 UNV Ondansetron HCl (Zofran) 4 mg PRN Q8HRS PRN 09/28/18 13:00 09/29/18 12:59 DC Pantoprazole Sodium (Protonix) 40 mg DAILY07 09/29/18 07:00 UNV Sodium Chloride 1,000 ml @ 100 mls/hr Q10H 09/28/18 18:30 09/30/18 10:34 DC 09/30/18 06:08 100 MLS/HR Tamsulosin HCl (Flomax) 0.4 mg BID 09/29/18 09:15 09/30/18 08:38 0.4 MG Lab Laboratory Tests Test 09/30/18 03:00 White Blood Count 4.6 x10^3/uL (4.0-11.0) Red Blood Count 2.96 x10^6/uL (4.30-5.70) Hemoglobin 8.4 g/dL (13.0-17.5) Hematocrit 25.4 % (39.0-53.0) Mean Corpuscular Volume 86 fL (79-100) Mean Corpuscular Hemoglobin 28 pg (25-35) Mean Corpuscular Hemoglobin Concent 33 g/dL (31-37) Red Cell Distribution Width 16.7 % (11.5-14.5) Platelet Count 265 x10^3/uL (140-400) Neutrophils (%) (Auto) 97 % (31-73) Lymphocytes (%) (Auto) 3 % (24-48) Monocytes (%) (Auto) 0 % (0-9) Eosinophils (%) (Auto) 0 % (0-3) Basophils (%) (Auto) 0 % (0-3) Neutrophils # (Auto) 4.5 x10^3uL (1.8-7.7) Lymphocytes # (Auto) 0.1 x10^3/uL (1.0-4.8) Monocytes # (Auto) 0.0 x10^3/uL (0.0-1.1) Eosinophils # (Auto) 0.0 x10^3/uL (0.0-0.7) Basophils # (Auto) 0.0 x10^3/uL (0.0-0.2) Segmented Neutrophils % 98 % (35-66) Lymphocytes % 1 % (24-48) Monocytes % 1 % (0-10) Platelet Estimate Adequate (ADEQUATE) Sodium Level 139 mmol/L (136-145) Potassium Level 4.0 mmol/L (3.5-5.1) Chloride Level 107 mmol/L (98-107) Carbon Dioxide Level 25 mmol/L (21-32) Anion Gap 7 (6-14) Blood Urea Nitrogen 27 mg/dL (8-26) Creatinine 2.4 mg/dL (0.7-1.3) Estimated GFR (Cockcroft-Gault) 26.7 Glucose Level 251 mg/dL (70-99) Calcium Level 8.6 mg/dL (8.5-10.1) Results All relevant outside records, renal labs, imaging studies, telemetry/EKG's were reviewed. JACOBO CARDOZA MD September 30, 2018 10:44
[2018-09-30 11:00] VITALS: BP 113/60
--- NOTE | 2018-09-30 12:13 | RAD ---
CT of the abdomen and pelvis without contrast 09/29/2018 Indication: Evaluate for acute obstructive uropathy. Acute renal failure, left nephrolithiasis. Mild left hydronephrosis. Technique: Multidetector CT imaging of the abdomen and pelvis was obtained without contrast Findings: Limited visualization of lung bases demonstrates no acute abnormality. Liver and gallbladder demonstrate no acute abnormality. Spleen demonstrates small areas of calcification likely prior granulomatous disease. Accessory splenule is noted. Adrenal glands are unremarkable. Noncontrast evaluation of the pancreas is grossly unremarkable. 2 nonobstructing stones are noted in the left kidney. The larger is in the inferior pole measuring approximately 9 mm in diameter. Smaller is in the mid left kidney measuring 5 mm in diameter. Punctate nonobstructing stone noted in the superior pole the right kidney. No evidence of hydronephrosis or acute obstructive uropathy is seen. No evidence of ureteral stone is identified. Prostate is markedly enlarged. The gallbladder wall thickening is noted. There is no bowel obstruction. No acute inflammatory change involving the bowel is seen. The appendix is unremarkable. No free fluid or free air is seen in the abdomen or pelvis. No evidence of acute osseous abnormality is identified. Degenerative changes of the thoracic and lumbar spine noted. Impression: 1.Bilateral nephrolithiasis without evidence of obstructive uropathy. 2. Marked prostatomegaly with mild bladder wall thickening. PQRS Compliance Statement: One or more of the following individualized dose reduction techniques were utilized for this examination: 1. Automated exposure control 2. Adjustment of the mA and/or kV according to patient size 3. Use of iterative reconstruction technique
[2018-09-30] MEDS: INSULIN LISPRO 300 UNITS/3 ML INSULN.PEN. SQ SCH ×2 (12:41→18:06)
[2018-09-30] MEDS: METHYLPREDNISOLONE SOD SUCC IV SCH (13:49)
[2018-09-30] MEDS: NORMAL SALINE IV SCH (13:49)
[2018-09-30 15:00] VITALS: BP 133/69
[2018-09-30 19:55] VITALS: BP 142/68
[2018-09-30 22:56] VITALS: BP 124/61
[2018-10-01 03:31] VITALS: BP 135/62
[2018-10-01 05:04] LABS: CREATININE 2.5 mg/dL (0.7-1.3); GFR 25.5; POTASSIUM 4.2 mmol/L (3.5-5.1)
[2018-10-01 07:00] VITALS: BP 120/59
[2018-10-01] MEDS: PANTOPRAZOLE 40 MG TABLET.DR. PO SCH (07:54)
[2018-10-01] MEDS: CYANOCOBALAMIN (VITAMIN B-12) 1,000 MCG TABLET. PO SCH (07:54)
[2018-10-01] MEDS: azaTHIOprine 50 MG TABLET PO SCH (07:54)
[2018-10-01] MEDS: FOLIC ACID 1 MG TABLET. PO SCH (07:55)
[2018-10-01] MEDS: TAMSULOSIN 0.4 MG CAP.ER.24H. PO SCH (07:55)
[2018-10-01] MEDS: FINASTERIDE 5 MG TABLET. PO SCH (07:55)
[2018-10-01] MEDS: MAGNESIUM OXIDE 400 MG TABLET PO SCH (07:56)
[2018-10-01] MEDS: INSULIN LISPRO 300 UNITS/3 ML INSULN.PEN. SQ SCH ×2 (09:13→13:14)
[2018-10-01] MEDS ORDERED: TAMS0.4C97 PO (09:29)
[2018-10-01] MEDS ORDERED: FINA5TAB4 PO (09:29)
[2018-10-01] MEDS ORDERED: PRED-220 PO (09:29)
--- NOTE | 2018-10-01 09:31 | DISCH ---
DISCHARGE INSTRUCTIONS Condition on Discharge Condition on Discharge: Stable Activity After Discharge Activity Instructions for Disc: Resume previous activity Diet after Discharge Diet after Discharge: Cardiac (ADA) Diet Texture: Regular Liquid Texture: Thin Liquid Checks after Discharge Checks after discharge: Check blood sugar, ac/hs Contacting the DR. after DC Call your doctor for: Concerns you may have Follow-Up Follow up with: Dr.Pratip tracy in 5 days Follow Up With: Treatment/Equipment after DC Comment: back-kidney BART TRACY MD October 01, 2018 09:31
--- NOTE | 2018-10-01 10:01 | PDOC3 ---
IM DISCHARGE SUMMARY Date of Admission Date of Admission Date of Admission: Sep 28, 2018 at 12:59 Date of Discharge Date of Discharge October 01, 2018 Primary Diagnosis Primary Diagnosis 1. Acute renal failure. 2. Hypertension, not controlled. 3. Diabetes mellitus. 4. Rosa's granulomatosis, on azathioprine. 5. History of elevated prostate specific antigen and prostatic hypertrophy. 6. Bilateral renal calculi without any obstruction 7. The patient may have mild obstructive uropathy due to BPH Consults Consults Isabel Minor MD Labs Labs Laboratory Tests Test 09/28/18 10:00 09/29/18 05:50 09/29/18 10:30 09/30/18 03:00 White Blood Count 6.4 x10^3/uL (4.0-11.0) 4.5 x10^3/uL (4.0-11.0) 4.6 x10^3/uL (4.0-11.0) Red Blood Count 3.16 x10^6/uL (4.30-5.70) 2.89 x10^6/uL (4.30-5.70) 2.96 x10^6/uL (4.30-5.70) Hemoglobin 8.9 g/dL (13.0-17.5) 8.2 g/dL (13.0-17.5) 8.4 g/dL (13.0-17.5) Hematocrit 27.1 % (39.0-53.0) 24.8 % (39.0-53.0) 25.4 % (39.0-53.0) Mean Corpuscular Volume 86 fL (79-100) 86 fL (79-100) 86 fL (79-100) Mean Corpuscular Hemoglobin 28 pg (25-35) 29 pg (25-35) 28 pg (25-35) Mean Corpuscular Hemoglobin Concent 33 g/dL (31-37) 33 g/dL (31-37) 33 g/dL (31-37) Red Cell Distribution Width 16.3 % (11.5-14.5) 16.5 % (11.5-14.5) 16.7 % (11.5-14.5) Platelet Count 307 x10^3/uL (140-400) 262 x10^3/uL (140-400) 265 x10^3/uL (140-400) Neutrophils (%) (Auto) 82 % (31-73) 76 % (31-73) 97 % (31-73) Lymphocytes (%) (Auto) 10 % (24-48) 13 % (24-48) 3 % (24-48) Monocytes (%) (Auto) 7 % (0-9) 8 % (0-9) 0 % (0-9) Eosinophils (%) (Auto) 1 % (0-3) 3 % (0-3) 0 % (0-3) Basophils (%) (Auto) 1 % (0-3) 1 % (0-3) 0 % (0-3) Neutrophils # (Auto) 5.2 x10^3uL (1.8-7.7) 3.4 x10^3uL (1.8-7.7) 4.5 x10^3uL (1.8-7.7) Lymphocytes # (Auto) 0.6 x10^3/uL (1.0-4.8) 0.6 x10^3/uL (1.0-4.8) 0.1 x10^3/uL (1.0-4.8) Monocytes # (Auto) 0.4 x10^3/uL (0.0-1.1) 0.4 x10^3/uL (0.0-1.1) 0.0 x10^3/uL (0.0-1.1) Eosinophils # (Auto) 0.1 x10^3/uL (0.0-0.7) 0.1 x10^3/uL (0.0-0.7) 0.0 x10^3/uL (0.0-0.7) Basophils # (Auto) 0.0 x10^3/uL (0.0-0.2) 0.0 x10^3/uL (0.0-0.2) 0.0 x10^3/uL (0.0-0.2) Sodium Level 141 mmol/L (136-145) 141 mmol/L (136-145) 139 mmol/L (136-145) Potassium Level 3.6 mmol/L (3.5-5.1) 3.8 mmol/L (3.5-5.1) 4.0 mmol/L (3.5-5.1) Chloride Level 104 mmol/L (98-107) 106 mmol/L (98-107) 107 mmol/L (98-107) Carbon Dioxide Level 27 mmol/L (21-32) 26 mmol/L (21-32) 25 mmol/L (21-32) Anion Gap 10 (6-14) 9 (6-14) 7 (6-14) Blood Urea Nitrogen 29 mg/dL (8-26) 25 mg/dL (8-26) 27 mg/dL (8-26) Creatinine 2.4 mg/dL (0.7-1.3) 2.2 mg/dL (0.7-1.3) 2.4 mg/dL (0.7-1.3) Estimated GFR (Cockcroft-Gault) 26.7 29.6 26.7 BUN/Creatinine Ratio 12 (6-20) 11 (6-20) Glucose Level 126 mg/dL (70-99) 122 mg/dL (70-99) 251 mg/dL (70-99) Calcium Level 9.0 mg/dL (8.5-10.1) 8.4 mg/dL (8.5-10.1) 8.6 mg/dL (8.5-10.1) Magnesium Level 1.7 mg/dL (1.8-2.4) 1.8 mg/dL (1.8-2.4) Total Bilirubin 0.2 mg/dL (0.2-1.0) 0.3 mg/dL (0.2-1.0) Aspartate Amino Transf (AST/SGOT) 17 U/L (15-37) 17 U/L (15-37) Alanine Aminotransferase (ALT/SGPT) 13 U/L (16-63) 11 U/L (16-63) Alkaline Phosphatase 92 U/L (46-116) 77 U/L (46-116) Total Protein 6.8 g/dL (6.4-8.2) 6.0 g/dL (6.4-8.2) Albumin 2.8 g/dL (3.4-5.0) 2.3 g/dL (3.4-5.0) Albumin/Globulin Ratio 0.7 (1.0-1.7) 0.6 (1.0-1.7) Phosphorus Level 4.1 mg/dL (2.6-4.7) Prostate Specific Antigen 11.33 ng/mL (0.00-4.00) Prothrombin Time 14.1 SEC (11.7-14.0) Prothromb Time International Ratio 1.1 (0.8-1.1) Activated Partial Thromboplast Time 33 SEC (24-38) Segmented Neutrophils % 98 % (35-66) Lymphocytes % 1 % (24-48) Monocytes % 1 % (0-10) Platelet Estimate Adequate (ADEQUATE) Test 09/30/18 12:01 09/30/18 16:58 09/30/18 19:28 10/01/18 04:00 Glucose (Fingerstick) 164 mg/dL (70-99) 187 mg/dL (70-99) 321 mg/dL (70-99) Sodium Level 141 mmol/L (136-145) Potassium Level 4.2 mmol/L (3.5-5.1) Chloride Level 106 mmol/L (98-107) Carbon Dioxide Level 26 mmol/L (21-32) Anion Gap 9 (6-14) Blood Urea Nitrogen 32 mg/dL (8-26) Creatinine 2.5 mg/dL (0.7-1.3) Estimated GFR (Cockcroft-Gault) 25.5 Glucose Level 185 mg/dL (70-99) Calcium Level 9.0 mg/dL (8.5-10.1) Test 10/01/18 07:04 Glucose (Fingerstick) 152 mg/dL (70-99) Brief hospital course Brief hospital course This 73-year-old male went to Dr. Hernandez's office today for Nephrology evaluation and he was noted to have creatinine of 2.4. Previously, the patient's creatinine has been around 1. 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 Currently, he is getting azathioprine and for many years, his renal function has been quite stable. However, the patient has been complaining of nocturia four times at night and feels that he is not able to empty the bladder completely and last several weeks, he also has had swelling of the legs. Because of that, the patient was sent to the Emergency Room. In the Emergency Room, the patient's creatinine was 2.4. Urinalysis showed nitrite negative, but moderate leukocyte esterase, 40 rbc's, 40 wbc's and moderate bacteria. The patient does not have any dysuria, fever or chills. BUN is 29, creatinine 2.4, glucose 126, magnesium 1.7, albumin 2.8. Sodium 141, potassium 3.6. WBC count 6.4, hemoglobin 8.9. Renal sonogram showed mild left hydronephrosis and possible inferior left renal calculus. Because of the acute renal failure, the patient has been admitted for further evaluation and management. For more details regarding the past history, family history, social history, surgical history and other details, please refer to History and Physical. I will start him on IV fluids to see if we can help him in his renal function for the acute renal failure. We will consult the urologist for Urology evaluation and management and Dr. Hernandez for Nephrology evaluation and management. The patient has been kept n.p.o. from [facility] for kidney biopsy. For details, please review the orders. Condition and treatment discussed with the patient and his . Magnesium level is slightly low at 1.7, so I will start him on magnesium supplements. Recheck labs in a.m. For details, please review the orders and monitor blood pressure and blood sugars. Patient was given IV Solu-Medrol 1 g daily for 3 days and then patient will be started on prednisone 60 mg daily. I do not know the tapered dose so I'll given him a prescription for prednisone 10 mg to be taken as directed with a prescription for 100 tablets. Acute renal failure- creatinine has decreased to 2.2. Recheck labs in a.m. drinking fluids well. Okay to DC IV fluids. Patient had renal biopsy. Bilateral renal calculi without any obstruction noted on the CT scan of abdomen and pelvis. Benign prostatic hypertrophy- possibly with some obstruction. PVR is 200-250 mL Increased Flomax to 0.4 mg twice a day and continue Proscar. Elevated blood sugar due to steroids.-I will start him on Lantus 10 units subcutaneous daily. If blood sugar is less than 100 he can hold the Lantus. Staff will give him the pen that is being used today. Patient will see me in the office in 6 days on . He will see Dr. Hernandez on the Thursday next week and will also follow-up with the urologist on 18 of October. As patient is stable patient will be discharged today. Biopsy report will be followed up as outpatient. Patient is advised to monitor blood sugars closely. Medications Medications reviewed and reconciled for discharge. Allergy Allergies Coded Allergies Type Severity Reaction Last Updated Verified venom-honey bee Allergy Severe Anaphylaxis 06/14/13 Yes Follow up in 5 days. Comments Discharge Management - 35 minutes. For other details please refer to discharge instructions BART MURPHY MD October 01, 2018 10:01
[2018-10-01] MEDS ORDERED: INSU100I13 SQ (10:03)
[2018-10-01] MEDS ORDERED: INSULIN GLARGINE 300 UNITS/3 ML INSULN.PEN. SQ SCH (10:30)
[2018-10-01 11:00] VITALS: BP 125/60
[2018-10-01] MEDS: METHYLPREDNISOLONE SOD SUCC IV SCH (13:37)
[2018-10-01] MEDS: NORMAL SALINE IV SCH (13:37)
--- NOTE | 2018-10-01 13:38 | PDOC ---
SUBJECTIVE ROS States feeling good, OBJECTIVE Vital Signs Vital Signs Date Time Temp Pulse Resp B/P (MAP) Pulse Ox O2 Delivery O2 Flow Rate FiO2 10/01/18 11:00 98.0 64 18 125/60 (81) 96 Room Air 98.0 09/30/18 20:00 2.0 I & 0 Intake and Output 10/01/18 06:59 Intake Total 852 ml Output Total 1500 ml Balance -648 ml Intake Oral 852 ml Output Urine Total 1500 ml # Voids 5 PHYSICAL EXAM Physical Exam GENERAL: not in any acute distress. HENT: OM moist NECK: Supple LUNGS: CTA ant , No use of accessory Muscle CV : S1, S2 regular. ABDOMEN: Soft, nontender, EXTREMITIES: Trace edema [employer]- Alert and oriented, grossly normal SKIN - No rash - No SP or CV tenderness, No Benavides DIAGNOSIS/ASSESSMENT Assessment & Plan AYLA - Follows with for Rosa On Imuran and Prednisone po for many years Recent labs showed elevated Creat to 2.7 and 24 Proteinuria of 2.5 gms,Anca positive S/P renal Bx 09/29, await report Methylprednisone loading dose for 3 days- last dose today PO Prednisone 60 mg QD from 10/02/18 follow up closely with Dr. Hernandez - has appt on 10/06/18 Continue Imuran Discussed with Dr. Hernandez Microscopic Hematuria - ? recurrence of Rosa vs Renal Calculus (CT scan Bilateral nephrolithiasis without evidence of obstructive uropathy. Marked prostatomegaly with mild bladder wall thickening. Elevated PSA as well, s/p Prostate Bx No malignancy Hydronephrosis Mild Lt PVR 200-250 ml Renal calculus on US, CT as above Urology following Rosa's granulomatosis, on azathioprine and prednisone PO Follows with Rheumatology s well Discussed A/P with patient and RN COMMENT/RELEVANT DATA Meds Current Medications Medications (Trade) Dose Ordered Sig/Maikel Start Time Stop Time Status Last Admin Dose Admin Acetaminophen (Tylenol) 650 mg PRN Q6HRS PRN 09/28/18 18:15 Artificial Tears (Artificial Tears) 1 drop PRN QID PRN 09/28/18 18:15 Azathioprine (Imuran) 50 mg BID 09/28/18 21:00 UNV Cyanocobalamin (Vitamin B-12) 1,000 mcg DAILY 09/29/18 09:00 10/01/18 07:54 1,000 MCG Fentanyl Citrate (Fentanyl 2ml Vial) 100 mcg 1X ONCE 09/29/18 14:45 09/29/18 14:46 DC 09/29/18 15:00 100 MCG Finasteride (Proscar) 5 mg DAILY 09/29/18 09:00 10/01/18 07:55 5 MG Folic Acid (Folic Acid) 1 mg DAILY 09/29/18 09:00 UNV Gelatin (Gelfoam Size 12-7mm) 1 each 1X ONCE 09/29/18 14:45 09/29/18 14:46 DC 09/29/18 14:45 1 EACH Insulin Glargine (Lantus) 10 units DAILY10 10/01/18 10:30 10/01/18 10:30 10 UNITS Insulin Human Lispro (HumaLOG) 0-8 UNITS TIDAC 09/30/18 11:30 10/01/18 13:14 4 UNITS Lidocaine/Sodium Bicarbonate (Buffered Lidocaine 1%) 3 ml 1X ONCE 09/29/18 14:45 09/29/18 14:46 DC 09/29/18 15:00 3 ML Linagliptin (Tradjenta) 5 mg DAILY 09/29/18 09:00 UNV Magnesium Oxide (Magnesium Oxide) 400 mg BID 09/28/18 21:00 10/01/18 07:56 400 MG Methylprednisolone Sodium Succinate 1000 mg/Sodium Chloride 108 ml @ 108 mls/hr Q24H 09/29/18 15:00 10/01/18 15:59 09/30/18 13:49 108 MLS/HR Midazolam HCl (Versed) 2 mg 1X ONCE 09/29/18 14:45 09/29/18 14:46 DC 09/29/18 15:00 2 MG Nifedipine (Procardia Xl) 30 mg HS 09/28/18 21:00 09/30/18 20:41 30 MG Non-Formulary Medication (Cyanocobalamin/ Fa/Pyridoxine (B Complex-Folic Acid Tablet)) 1 each DAILY 09/29/18 09:00 UNV Ondansetron HCl (Zofran) 4 mg PRN Q8HRS PRN 09/28/18 13:00 09/29/18 12:59 DC Pantoprazole Sodium (Protonix) 40 mg DAILY07 09/29/18 07:00 UNV Sodium Chloride 1,000 ml @ 100 mls/hr Q10H 09/28/18 18:30 09/30/18 10:34 DC 09/30/18 06:08 100 MLS/HR Tamsulosin HCl (Flomax) 0.4 mg BID 09/29/18 09:15 10/01/18 07:55 0.4 MG Lab Laboratory Tests Test 09/30/18 16:58 09/30/18 19:28 10/01/18 04:00 10/01/18 07:04 Glucose (Fingerstick) 187 mg/dL (70-99) 321 mg/dL (70-99) 152 mg/dL (70-99) Sodium Level 141 mmol/L (136-145) Potassium Level 4.2 mmol/L (3.5-5.1) Chloride Level 106 mmol/L (98-107) Carbon Dioxide Level 26 mmol/L (21-32) Anion Gap 9 (6-14) Blood Urea Nitrogen 32 mg/dL (8-26) Creatinine 2.5 mg/dL (0.7-1.3) Estimated GFR (Cockcroft-Gault) 25.5 Glucose Level 185 mg/dL (70-99) Calcium Level 9.0 mg/dL (8.5-10.1) Test 10/01/18 10:38 Glucose (Fingerstick) 251 mg/dL (70-99) Results All relevant outside records, renal labs, imaging studies, telemetry/EKG's were reviewed. JACOBO CARDOZA MD October 01, 2018 13:38
--- NOTE | 2018-10-01 16:02 | NUR ---
Discharged pt after medication finished at 1456, walked with aid to vehicle.
--- NOTE | 2018-10-05 09:08 | PATHOLOGY ---
[facility] Accession Number: [id number] . 01 Material submitted: . kidney - RIGHT RENAL BIOPSY. Modifiers: right . 01 Clinician provided ICD-10: . . 01 Clinical history: . Rosa's, hematuria, AYLA . 02 Diagnosis: Special studies report received from [employer], [address] [place] [address], [address], [place] [address], on case [id number], labeled with their number [id number], dated 10/01/2018. . Specimen submitted: By Carmelita Duarte MD For Kidney, biopsy . DIAGNOSIS: . Necrotizing and Crescentic Glomerulonephritis, [id number] (see Comment). . 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 The biopsy was compared to the patient's prior biopsy ([id number]) and shows increased global glomerulosclerosis, interstitial fibrosis, and vascular scarring. There is current activity in the form of cellular and fibrocellular crescents (with 5 of 7 intact glomeruli with crescents by light microscopy) as well as acute tubular injury with red blood cell casts. . See table below for summary of chronicity findings: . Chronicity Summary Total Glomeruli- 39 Global Glomerulosclerosis- 17 Segmental Sclerosis- Present Interstitial Fibrosis- Moderate to Severe Tubular Atrophy- Moderate to Severe Arterial Intimal Fibrosis- Focally Severe Arteriolar Hyalinosis- Mild . Clinical History: The patient is a 73-year-old male with a history of granulomatosis with polyangitis, anemia, remote rheumatic fever, arthritis, and an enlarged prostate who presents with acute kidney injury and hematuria. He is currently on dialysis. Laboratory studies show an elevated GUN (29 mg/dL) and creatinine (2.4 mg/dL), low albumin (2.8 g/dL), low hemoglobin (8.4 g/dL), and a low GFR (25 mL/min). A urinalysis shows greater than 40 red blood cells per high power field and greater than 40 white blood cells per high power field. 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 A renal ultrasound shows mild left hydronephrosis and a left renal calculus. A renal biopsy was performed to identify the etiology of the patient's acute kidney injury. . Gross Description: Received from [employer] ([place], [place]) are two foreign bottles; one bottle contains formalin and the other contains Tanner's fixative. The bottles are labeled with the patient's name (Delfino Aguiar). . Received in formalin are three pieces of russ tissue measuring 1.0 x 0.1 x 0.1 cm, 0.5 x 0.1 x 0.1 cm, and 0.6 x 0.1 x 0.1 cm. Two pieces are submitted for electron microscopy and the remainder of the tissue is submitted in its entirety for light microscopy. . Received in Tanner's fixative is one piece of red tissue measuring 1.4 x 0.1 x 0.1 cm (bloody). The specimen is submitted in its entirety for immunofluorescence microscopy. . Microscopic Description: LIGHT MICROSCOPY: . The renal tissue submitted for light microscopy consists of 60% cortex and contains 16 glomeruli of which nine are globally sclerotic. Five of seven intact glomeruli show crescent formation with three cellular crescents and two fibrocellular crescents. Two glomeruli with cellular crescents show foci of karyorrhexis and fibrinoid necrosis. There are globally sclerotic glomeruli with fibrosis crescents identified. A single glomerulus shows segmental sclerosis with adhesion of glomerular capillary tuft to Velasquez's capsule. Within rare intact glomeruli, there is no mesangial matrix expansion, mesangial hypercellularity, or endocapillary hypercellularity. The glomerular capillary loops are without spikes, holes and double contours. There is moderate to severe interstitial fibrosis and tubular atrophy involving 50% of cortex. There is moderate interstitial edema. There is a moderate mixed interstitial inflammatory infiltrate comprised of lymphocytes, plasma cells, neutrophils, and eosinophils. This infiltrate is predominantly within cortex and shows a patchy distribution within the medulla. There is no medullary hemorrhage or angiitis. The tubular epithelium shows dilation, cytoplasmic blebbing, and areas of simplification. Fresh and hemolyzing red blood cell casts are identified within tubular epithelium, morphologically consistent with hemosiderin. Arteries show severe intimal fibrosis. There is mild arteriolar hyalinosis. No arteritis is identified. [place] red stain is negative for amyloid. Toluidine blue stained sections show entirely cortex and contain four glomeruli of which two are globally sclerotic. . Material from the patient's previous biopsy ([id number]) was reviewed concurrently. . Standard of care requirements for proper analysis of renal biopsies mandates serial sections, and PAS, Regalado silver, trichrome and SMMT stains at multiple levels. PAS stains are used to evaluate various aspects of the glomerular, tubular, and vascular basement membranes. Regalado silver stains are used to evaluate thickening, reduplication, "spiking" or "bubbling" of the glomerular basement membrane. Toluidine blue stained sections highlight glomerular basement membranes and demonstrates unusual types of deposits. It also reveals details of tubular epithelial cells and aids in the analysis of vascular lesions. Samantha trichrome stains are used to evaluate interstitial fibrosis and basement membrane deposits. The SMMT stain helps evaluate basement membrane changes, immune deposits and tubulointerstitial scarring. Controls are routinely run on all special stains and are verified for acceptability. A review of the technical quality of routine slides is made before results are reported. . . IMMUNOFLUORESCENCE: One core of renal tissue is present for evaluation consisting of 70% cortex and contains 19 glomeruli of which six are globally sclerotic. Darkfield microscopy shows crescent formation within focal glomeruli. The sections are stained for IgG, IgM, IgA, C3, C1q, albumin, fibrinogen, and kappa and lambda light chains. Within glomeruli, there is granular mesangial staining for IgA (trace), IgM (trace), C3 (trace), kappa (trace), and lambda (trace). An albumin stain highlights protein resorption droplets within proximal tubular epithelium. A fibrinogen stain shows segmental staining within five glomeruli. [place] and lambda light chain staining is equal throughout the tubulointerstitium. . Positive and negative controls are run on all immunofluorescent stains and are verified for acceptability before results are reported. Internal antigens serve as positive controls. . ELECTRON MICROSCOPY: Two blocks are prepared. Ultrastructural evaluation of a glomerulus reveals basement membranes that are of normal thickness. There are no electron-dense deposits identified along the glomerular capillary loops or within the mesangium. The mesangium is not expanded by matrix or cellularity. There is moderate podocyte foot process effacement (approximately 40%). The tubular basement membranes are without deposits and are otherwise unremarkable. . Special procedures including immunofluorescence and electron microscopy correlate with the light microscopy findings. . Note: Some of the tests reported here may have been developed and performance characteristics determined by [facility]. They have not been cleared or approved by the U.S. Food and Drug Administration (FDA). The FDA does not require this test to go through premarket FDA review. This test is used for clinical purposes. It should not be regarded as investigational or for research. [facility] is certified under the Clinical Laboratory Improvement Amendments of 1988 (CLIA) as qualified to perform high complexity clinical laboratory testing. . Physician/Physician's office called on 10/01/2018 at 3:24 PM Central. . *I have reviewed the clinical history, the pertinent gross findings, all microscopic materials, discussed the case with the clinician when appropriate, and have rendered the final diagnosis. . . Preliminary Diagnosis performed by José Platt M.D. Electronically signed 10/01/2018 5:21:46 PM . A complete copy of the report is on file. . Professional and technical services performed by [facility] at [address] [place] [address], [facility] [address], [place], [facility]. . ([facility] 10/04/2018) [facility]/10/04/2018 . 02 Electronically signed: . Peter Goldstein MD, Pathologist NPI- [id number] . 01 Gross description: . The specimen is received in formalin, labeled "Delfino Aguiar, right kidney BX", consist of a several russ-brown needle cores and its fragments approximately measuring 1.4 x 0.3 x 0.1 cm in aggregate. The specimen is sent to, and the final report will be submitted from, the [facility]. Also, received in a vial of Andrea solution, labeled with patient name and "right kidney BX", consist of a russ-brown needle core. Approximately measuring 1.5 cm in length and up to 0.1 cm in diameter. The specimen is sent to, and the final report will be submitted from, the [facility]. ([facility]WS; 09/30/2018) SHS/SHS . 02 Pathologist provided ICD-10: N05.7, N05.8 . 02 CPT . 818519 Specimen Comment: A courtesy copy of this report has been sent to Specimen Comment: [phone], , , . Specimen Comment: Report sent to ,DR ERICKSON,DR ARRIAGA / DR GOMES Performed at: 01 [facility] [address] [facility] [address], [place] [id number] MD Zachery Howe MD Phone: [phone] Performed at: 02 [facility] [address] [place], [place] [id number] MD Petre Goldstein MD Phone: [phone]
== END 2018-10-01 15:00 | disposition home or self-care (01) | DRG 683 ==
LOC: ER 09:04 → 6 SOUTH 12:59
PROVIDERS: ADMIT Internal Medicine; ATTEND Internal Medicine
PROC: 0TB03ZX Excision of Right Kidney, Percutaneous Approach, Diagnostic (ICD-10-PCS; principal; 2018-09-29)
DX: N17.9 Acute kidney failure, unspecified (principal); M31.31 Wegener's granulomatosis with renal involvement; I12.0 Hypertensive chronic kidney disease with stage 5 chronic kidney disease or end stage renal disease; N18.6 End stage renal disease; E09.65 Drug or chemical induced diabetes mellitus with hyperglycemia; M19.90 Unspecified osteoarthritis, unspecified site; K21.9 Gastro-esophageal reflux disease without esophagitis; N40.0 Benign prostatic hyperplasia without lower urinary tract symptoms; T38.0X5A Adverse effect of glucocorticoids and synthetic analogues, initial encounter; Z82.0 Family history of epilepsy and other diseases of the nervous system; Z82.49 Family history of ischemic heart disease and other diseases of the circulatory system; Z99.2 Dependence on renal dialysis; Z91.030 Bee allergy status
CPT/HCPCS: 36415; 50200; 74018; 74176; 76770; 80048; 80053; 81001; 82962; 83735; 84100; 85007; 85025; 85610; 85730; 87086; 88300; 99152; 99153; G0103; J1815; J2250; J2930; J3010; J7030; J7500; 99285-25

== ENCOUNTER → 2019-08-26 | Outpatient (CLI) | payer SELFPAY ==
[~2019-08-26] MED LIST changes: +FINA5TAB4 PO; +INSU100I13 SQ; -PANT40TA5 PO; +PANT40TA77 PO; +TAMS0.4C97 PO
== END ==
LOC: LAB 07:20
PROVIDERS: ATTEND Urology
DX: R97.20 Elevated prostate specific antigen [PSA] (principal)
CPT/HCPCS: 36415; G0103

== ENCOUNTER → 2019-10-27 | Outpatient (CLI) | payer SELFPAY ==
[2019-10-27 08:09] LABS: BASO % 1 % (0-3); EOS # 0.1 x10^3/uL (0.0-0.7); EOS % 1 % (0-3); HEMATOCRIT 36.4 % (39.0-53.0); HEMOGLOBIN 12.4 g/dL (13.0-17.5); LYMPH # 0.5 x10^3/uL (1.0-4.8); LYMPH % 9 % (24-48); MEAN CORPUSCULAR HEMOGLOBIN 32 pg (25-35); MEAN CORPUSCULAR HGB CONC 34 g/dL (31-37); MEAN CORPUSCULAR VOLUME 94 fL (79-100); MONO # 0.4 x10^3/uL (0.0-1.1); MONO % 7 % (0-9); NEUT # 4.5 x10^3/uL (1.8-7.7); NEUT % 82 % (31-73); PLATELET COUNT 216 x10^3/uL (140-400); RED BLOOD COUNT 3.86 x10^6/uL (4.30-5.70); RED CELL DISTRIBUTION WIDTH 13.3 % (11.5-14.5); WHITE BLOOD COUNT 5.5 x10^3/uL (4.0-11.0)
[2019-10-27 08:29] LABS: ALBUMIN 3.4 g/dL (3.4-5.0); CALCIUM 8.6 mg/dL (8.5-10.1); CREATININE 1.7 mg/dL (0.7-1.3); GFR 39.7; PHOSPHORUS 3.2 mg/dL (2.6-4.7); POTASSIUM 4.2 mmol/L (3.5-5.1)
[2019-10-27 08:30] LABS: CREATININE,RANDOM URINE 44.5 mg/dL (Not Establ.)
[2019-10-28 01:08] LABS: CALCIUM PTH 9.2 mg/dL (8.6-10.2); CREATININE PTH 1.58 mg/dL (0.76-1.27); PHOSPHORUS PTH 3.3 mg/dL (2.8-4.1); PTH INTACT 40 pg/mL (15-65)
== END | disposition home or self-care (01) ==
LOC: LAB 07:23
PROVIDERS: ATTEND Internal Medicine Nephrology
DX: I12.9 Hypertensive chronic kidney disease with stage 1 through stage 4 chronic kidney disease, or unspecified chronic kidney disease (principal); N18.3 Chronic kidney disease, stage 3 (moderate); R80.9 Proteinuria, unspecified; M31.31 Wegener's granulomatosis with renal involvement; N40.1 Benign prostatic hyperplasia with lower urinary tract symptoms; Z68.30 Body mass index [BMI] 30.0-30.9, adult
CPT/HCPCS: 36415; 80069; 82570; 83970; 84156; 85025